=== PATIENT | male | born 1995 | race Caucasian/White ===

== ENCOUNTER 2018-11-13 16:31 | Emergency (ER) | payer OTHER, SELFPAY ==
[2018-11-13 16:35] VITALS: BP 172/103; PULSE 131; RESP 18; TEMP 37.1; O2SAT 100; BMI 26.4
[2018-11-13 17:03] LABS: Add Manual Diff / Slide Review NO; Basophils Absolute Auto 100 /uL (0-100); Eosinophils Absolute Auto 0 /uL (0-450); Eosinophils Percent Auto 0.4 % (2-4); Hematocrit 48.3 % (41-53); Hemoglobin 17.1 g/dL (13.5-17.5); Lymphocytes Absolute Auto 2400 /uL (1100-4500); Lymphocytes Percent Auto 29.8 % (25-40); Mean Corpuscular HGB Conc 35.4 % (30-36); Mean Corpuscular Volume 98.7 fL (80-100); Monocytes Absolute Auto 600 /uL (0-900); Monocytes Percent Auto 7.5 % (3-14); Neutrophils Absolute Auto 5000 /uL (1500-7000); Neutrophils Percent Auto 61.3 % (50-75); Platelet Count 425 X10^3/uL (150-400); Red Blood Cell Count 4.89 X10^6/uL (4.5-5.9); Red Cell Distribution Width 13.3 % (11.6-14.8); White Blood Cell Count 8.2 X10^3/uL (4.5-11.0)
[2018-11-13 17:32] LABS: Urine Amphetamines Negative (Negative); Urine Barbiturates Negative (Negative); Urine Benzodiazepines Negative (Negative); Urine Cocaine Negative (Negative); Urine MDMA Negative (Negative); Urine Methadone Negative (Negative); Urine Methamphetamines Negative (Negative); Urine Morphine/Opi cutoff 2000 Negative (Negative); Urine Oxycodone Negative (Negative); Urine Phencyclidine Negative (Negative); Urine Tetrahydrocannabinol Positive (Negative); Urine Tricyclic Antidepressant Negative (Negative)
[2018-11-13 17:42] LABS: Acetaminophen < 10 ug/mL (10-30); Alanine Aminotransferase 89 IU/L (21-72); Albumin 5.2 g/dL (3.5-5.0); Albumin Globulin Ratio 1.4 (1.0-2.8); Alkaline Phosphatase 143 U/L (38-126); Aspartate Aminotransferase 136 IU/L (17-59); BUN Creatinine Ratio 12.2 (6-22); Bilirubin Total 2.3 mg/dL (0.2-1.3); Blood Urea Nitrogen 11 mg/dL (9-20); Calcium 9.6 mg/dL (8.4-10.2); Carbon Dioxide 26 mmol/L (22-32); Chloride 102 mmol/L (98-107); Estimated Glomerular Filt Rate > 60.0 mL/min (>60); Ethanol (ETOH) 277 mg/dL; Globulin 3.7 g/dL (1.7-4.1); Glucose 106 mg/dL (70-100); HEMOLYSIS < 15 (0-50); Potassium 4.1 mmol/L (3.4-5.1); Salicylate < 1.0 mg/dL (<20); Sodium 145 mmol/L (137-145); Total Protein 8.9 g/dL (6.3-8.2)
--- NOTE | 2018-11-13 17:47 | ED.PSYCH ---
HPI - Psych <Jeni Reece DO - Last Filed: 11/14/18 07:03> General Chief Complaint: Psychiatric Symptoms Stated Complaint: UNSTABLE Time Seen by Provider: 11/13/18 16:54 Source: patient Mode of arrival: ambulatory Limitations: no limitations History of Present Illness HPI Narrative: Patient is a 23-year-old male presents with depression and alcoholism. He does have a history of suicide attempts in the past he has tried to cut his femoral arteries along with his wrist, he drank bleach. Today he states that he has no specific plan of suicide attempt. He states ?I do not want to be here anymore ?he feels of very sad he has been depressed for a long period of time. He drinks at least a 5th of alcohol daily. He drinks prior to his arrival. He is requesting detox and he would like to be put on depression medication. I have discussed with him that depression medication will not be started in the emergency department because he needs to be followed closely. He does not feel like he needs to put in a mental hospital but would really like detox for his alcohol today. MD complaint: feels depressed Duration: getting worse Related Data Home Medications Medication Instructions Recorded Confirmed No Known Home Medications 11/13/18 11/13/18 Allergies Allergy/AdvReac Type Severity Reaction Status Date / Time No Known Drug Allergies Allergy Verified 05/29/18 17:41 Review of Systems <DO Eduarda Waters Last Filed: 11/14/18 07:03> Review of Systems ROS Unobtainable: All systems reviewed & are unremarkable except as noted in HPI and below Constitutional Denies chills, Denies fever(s), Denies lethargy and Denies weakness ENT Ears, Nose, Mouth, and Throat: Denies change in voice, Denies neck pain and Denies sore throat Cardiovascular Denies chest pain, Denies irregular heart rhythm, Denies lightheadedness, Denies palpitations, Denies dyspnea, Denies dyspnea on exertion and Denies orthopnea Respiratory Denies cough, Denies dyspnea, Denies dyspnea on exertion and Denies wheezing Gastrointestinal Gastrointestinal: Denies abdominal pain, Denies change in bowel habits, Denies diarrhea, Denies nausea and Denies vomiting Genitourinary Denies hematuria, Denies flank pain, Denies urinary incontinence and Denies urinary urgency Musculoskeletal Denies neck pain Integumentary/Breasts Denies pruritus, Denies erythema, Denies rash and Denies wounds Neurologic Denies weakness Endocrine Denies palpitations Allergic/Immunologic Denies wheezing PFSH <Jeni Reece DO - Last Filed: 11/14/18 07:03> Medical History Alcoholism (Acute) Depression (Acute) Social History (Updated 11/13/18 @ 17:51 by Jeni Reece DO) Smoking Status: Current every day smoker alcohol intake: current Social History Smoking Status: Current every day smoker alcohol intake: current Exam <DO Eduarda Waters Last Filed: 11/14/18 07:03> Initial Vital Signs Initial Vital Signs: Vital Signs Temperature 98.8 F 11/13/18 16:35 Pulse Rate 131 H 11/13/18 16:35 Respiratory Rate 18 11/13/18 16:35 Blood Pressure 172/103 H 11/13/18 16:35 Pulse Oximetry 100 11/13/18 16:35 GENERAL: Alert male looks as though he has been crying good eye contact HEENT: Head atraumatic,EOMI, pupils reactive, CARDIOVASCULAR: Regular rate and rhythm without murmurs, rubs or gallops. RESPIRATORY: Breath sounds equal bilaterally, no wheezes rales or rhonchi. ABDOMEN: Soft, nontender. Normoactive bowel sounds all 4 quadrants. No guarding or rebound. EXTREMITIES: Normal range of motion, no clubbing or edema. Neurovascularly intact NEUROLOGICAL: Alert and oriented x4.Normal gait and speech. Cranial nerves II through XII grossly intact. SKIN: Warm, dry, no laceration, no petechiae, no rashes or lesions. Psych Appearance: grossly normal Mental Status: mental status grossly normal Speech and Movement: speech and movement normal Mood: congruent mood Affect: sad Attitude: cooperative Thought Process: normal Thought Content: normal Judgment: judgment good <Tobi Noble DO - Last Filed: 11/14/18 05:18> Initial Vital Signs Initial Vital Signs: Vital Signs Temperature 98.8 F 11/13/18 16:35 Pulse Rate 131 H 11/13/18 16:35 Respiratory Rate 18 11/13/18 16:35 Blood Pressure 172/103 H 11/13/18 16:35 Pulse Oximetry 100 11/13/18 16:35 Course <Jeni Reece DO - Last Filed: 11/14/18 07:03> Orders Ordered: Discontinued Medications Acetaminophen (Tylenol) 650 mg PO NOW ONE Stop: 11/13/18 23:27 Last Admin: 11/13/18 23:34 Dose: 650 mg Lorazepam (Ativan) 0.5 mg PO NOW ONE Stop: 11/13/18 21:27 Last Admin: 11/13/18 21:34 Dose: 0.5 mg Nicotine (Nicoderm) 21 mg TOP NOW ONE Stop: 11/13/18 19:14 Last Admin: 11/13/18 19:19 Dose: 21 mg Vital Signs - 8 hr 11/13/18 23:17 11/14/18 06:23 Temperature 97.9 F Pulse Rate 95 H 96 H Respiratory Rate 17 16 Blood Pressure [Right Arm] 127/79 148/89 H Pulse Oximetry 100 97 <Tobi Noble DO - Last Filed: 11/14/18 05:18> Orders Ordered: Discontinued Medications Acetaminophen (Tylenol) 650 mg PO NOW ONE Stop: 11/13/18 23:27 Last Admin: 11/13/18 23:34 Dose: 650 mg Lorazepam (Ativan) 0.5 mg PO NOW ONE Stop: 11/13/18 21:27 Last Admin: 11/13/18 21:34 Dose: 0.5 mg Nicotine (Nicoderm) 21 mg TOP NOW ONE Stop: 11/13/18 19:14 Last Admin: 11/13/18 19:19 Dose: 21 mg Vital Signs - 8 hr 11/13/18 23:17 11/14/18 06:23 Temperature 97.9 F Pulse Rate 95 H 96 H Respiratory Rate 17 16 Blood Pressure [Right Arm] 127/79 148/89 H Pulse Oximetry 100 97 MDM - Psych <DO Eduarda Waters Last Filed: 11/14/18 07:03> Lab Data Attestation: I reviewed the patient's lab results. Result diagrams: 11/13/18 16:56 11/13/18 16:56 Lab Results 11/13/18 11/13/18 11/13/18 Range/Units 16:56 16:56 16:56 WBC 8.2 (4.5-11.0) X10^3/uL RBC 4.89 (4.5-5.9) X10^6/uL Hgb 17.1 (13.5-17.5) g/dL Hct 48.3 (41-53) % MCV 98.7 (80-100) fL MCH 35.0 H (26-34) PG MCHC 35.4 (30-36) % RDW 13.3 (11.6-14.8) % Plt Count 425 H (150-400) X10^3/uL Neut % (Auto) 61.3 (50-75) % Lymph % (Auto) 29.8 (25-40) % Hendricks % (Auto) 7.5 (3-14) % Eos % (Auto) 0.4 L (2-4) % Baso % (Auto) 1.0 (0-2) % Neut # (Auto) 5000 (9141-1290) /uL Lymph # (Auto) 2400 (9803-1347) /uL Hendricks # (Auto) 600 (0-900) /uL Eos # (Auto) 0 (0-450) /uL Baso # (Auto) 100 (0-100) /uL Sodium 145 (137-145) mmol/L Potassium 4.1 (3.4-5.1) mmol/L Chloride 102 (98-107) mmol/L Carbon Dioxide 26 (22-32) mmol/L BUN 11 (9-20) mg/dL Creatinine 0.90 (0.66-1.25) mg/dL Estimated GFR > 60.0 (>60) mL/min BUN/Creatinine Ratio 12.2 (6-22) Glucose 106 H (70-100) mg/dL Calcium 9.6 (8.4-10.2) mg/dL Total Bilirubin 2.3 H (0.2-1.3) mg/dL AST 136 H (17-59) IU/L ALT 89 H (21-72) IU/L Alkaline Phosphatase 143 H (38-126) U/L Total Protein 8.9 H (6.3-8.2) g/dL Albumin 5.2 H (3.5-5.0) g/dL Globulin 3.7 (1.7-4.1) g/dL Albumin/Globulin Ratio 1.4 (1.0-2.8) TSH 1.86 (0.47-4.68) uIU/mL Free T4 1.01 (0.78-2.19) ng/dL Salicylates < 1.0 (<20) mg/dL Urine Opiates Screen (Negative) Ur Oxycodone Screen (Negative) Urine Methadone Screen (Negative) Acetaminophen < 10 L (10-30) ug/mL Ur Barbiturates Screen (Negative) U Tricyclic Antidepress (Negative) Ur Phencyclidine Scrn (Negative) Ur Amphetamines Screen (Negative) U Methamphetamines Scrn (Negative) Ur MDMA Scrn (Ecstasy) (Negative) U Benzodiazepines Scrn (Negative) Urine Cocaine Screen (Negative) U Marijuana (THC) Screen (Negative) Ethyl Alcohol 277 mg/dL 11/13/18 Range/Units 17:15 WBC (4.5-11.0) X10^3/uL RBC (4.5-5.9) X10^6/uL Hgb (13.5-17.5) g/dL Hct (41-53) % MCV (80-100) fL MCH (26-34) PG MCHC (30-36) % RDW (11.6-14.8) % Plt Count (150-400) X10^3/uL Neut % (Auto) (50-75) % Lymph % (Auto) (25-40) % Hendricks % (Auto) (3-14) % Eos % (Auto) (2-4) % Baso % (Auto) (0-2) % Neut # (Auto) (3454-5671) /uL Lymph # (Auto) (6840-8729) /uL Hendricks # (Auto) (0-900) /uL Eos # (Auto) (0-450) /uL Baso # (Auto) (0-100) /uL Sodium (137-145) mmol/L Potassium (3.4-5.1) mmol/L Chloride (98-107) mmol/L Carbon Dioxide (22-32) mmol/L BUN (9-20) mg/dL Creatinine (0.66-1.25) mg/dL Estimated GFR (>60) mL/min BUN/Creatinine Ratio (6-22) Glucose (70-100) mg/dL Calcium (8.4-10.2) mg/dL Total Bilirubin (0.2-1.3) mg/dL AST (17-59) IU/L ALT (21-72) IU/L Alkaline Phosphatase (38-126) U/L Total Protein (6.3-8.2) g/dL Albumin (3.5-5.0) g/dL Globulin (1.7-4.1) g/dL Albumin/Globulin Ratio (1.0-2.8) TSH (0.47-4.68) uIU/mL Free T4 (0.78-2.19) ng/dL Salicylates (<20) mg/dL Urine Opiates Screen Negative (Negative) Ur Oxycodone Screen Negative (Negative) Urine Methadone Screen Negative (Negative) Acetaminophen (10-30) ug/mL Ur Barbiturates Screen Negative (Negative) U Tricyclic Antidepress Negative (Negative) Ur Phencyclidine Scrn Negative (Negative) Ur Amphetamines Screen Negative (Negative) U Methamphetamines Scrn Negative (Negative) Ur MDMA Scrn (Ecstasy) Negative (Negative) U Benzodiazepines Scrn Negative (Negative) Urine Cocaine Screen Negative (Negative) U Marijuana (THC) Screen Positive H (Negative) Ethyl Alcohol mg/dL Point of Care Testing Breathalizer 0.23 Urine Dip Bedside Urine Glucose Negative Bedside Urine Bilirubin - Negative Bedside Urine Ketone - Negative Urine Specific [place] 1.025 Bedside Urine Occult Blood - Negative Bedside Urine pH 6.0 Bedside Urine Protein + 30 Bedside Urine Urobilinogen +/- 1mg Bedside Urine Nitrite - Negative Bedside Urine Leukocytes - Negative Esterase MDM Narrative Medical decision making narrative: At this time patient does not meet any sort of involuntary criteria. He is not actively suicidal. Requesting detox. Social work involved in care. Patient signed over to Dr. Noble for further care and management. <Tobi Noble, DO - Last Filed: 11/14/18 05:18> Lab Data Lab Results 11/13/18 11/13/18 11/13/18 Range/Units 16:56 16:56 16:56 WBC 8.2 (4.5-11.0) X10^3/uL RBC 4.89 (4.5-5.9) X10^6/uL Hgb 17.1 (13.5-17.5) g/dL Hct 48.3 (41-53) % MCV 98.7 (80-100) fL MCH 35.0 H (26-34) PG MCHC 35.4 (30-36) % RDW 13.3 (11.6-14.8) % Plt Count 425 H (150-400) X10^3/uL Neut % (Auto) 61.3 (50-75) % Lymph % (Auto) 29.8 (25-40) % Hendricks % (Auto) 7.5 (3-14) % Eos % (Auto) 0.4 L (2-4) % Baso % (Auto) 1.0 (0-2) % Neut # (Auto) 5000 (3933-7300) /uL Lymph # (Auto) 2400 (7045-2080) /uL Hendricks # (Auto) 600 (0-900) /uL Eos # (Auto) 0 (0-450) /uL Baso # (Auto) 100 (0-100) /uL Sodium 145 (137-145) mmol/L Potassium 4.1 (3.4-5.1) mmol/L Chloride 102 (98-107) mmol/L Carbon Dioxide 26 (22-32) mmol/L BUN 11 (9-20) mg/dL Creatinine 0.90 (0.66-1.25) mg/dL Estimated GFR > 60.0 (>60) mL/min BUN/Creatinine Ratio 12.2 (6-22) Glucose 106 H (70-100) mg/dL Calcium 9.6 (8.4-10.2) mg/dL Total Bilirubin 2.3 H (0.2-1.3) mg/dL AST 136 H (17-59) IU/L ALT 89 H (21-72) IU/L Alkaline Phosphatase 143 H (38-126) U/L Total Protein 8.9 H (6.3-8.2) g/dL Albumin 5.2 H (3.5-5.0) g/dL Globulin 3.7 (1.7-4.1) g/dL Albumin/Globulin Ratio 1.4 (1.0-2.8) TSH 1.86 (0.47-4.68) uIU/mL Free T4 1.01 (0.78-2.19) ng/dL Salicylates < 1.0 (<20) mg/dL Urine Opiates Screen (Negative) Ur Oxycodone Screen (Negative) Urine Methadone Screen (Negative) Acetaminophen < 10 L (10-30) ug/mL Ur Barbiturates Screen (Negative) U Tricyclic Antidepress (Negative) Ur Phencyclidine Scrn (Negative) Ur Amphetamines Screen (Negative) U Methamphetamines Scrn (Negative) Ur MDMA Scrn (Ecstasy) (Negative) U Benzodiazepines Scrn (Negative) Urine Cocaine Screen (Negative) U Marijuana (THC) Screen (Negative) Ethyl Alcohol 277 mg/dL 11/13/18 Range/Units 17:15 WBC (4.5-11.0) X10^3/uL RBC (4.5-5.9) X10^6/uL Hgb (13.5-17.5) g/dL Hct (41-53) % MCV (80-100) fL MCH (26-34) PG MCHC (30-36) % RDW (11.6-14.8) % Plt Count (150-400) X10^3/uL Neut % (Auto) (50-75) % Lymph % (Auto) (25-40) % Hendricks % (Auto) (3-14) % Eos % (Auto) (2-4) % Baso % (Auto) (0-2) % Neut # (Auto) (2198-3943) /uL Lymph # (Auto) (4238-4722) /uL Hendricks # (Auto) (0-900) /uL Eos # (Auto) (0-450) /uL Baso # (Auto) (0-100) /uL Sodium (137-145) mmol/L Potassium (3.4-5.1) mmol/L Chloride (98-107) mmol/L Carbon Dioxide (22-32) mmol/L BUN (9-20) mg/dL Creatinine (0.66-1.25) mg/dL Estimated GFR (>60) mL/min BUN/Creatinine Ratio (6-22) Glucose (70-100) mg/dL Calcium (8.4-10.2) mg/dL Total Bilirubin (0.2-1.3) mg/dL AST (17-59) IU/L ALT (21-72) IU/L Alkaline Phosphatase (38-126) U/L Total Protein (6.3-8.2) g/dL Albumin (3.5-5.0) g/dL Globulin (1.7-4.1) g/dL Albumin/Globulin Ratio (1.0-2.8) TSH (0.47-4.68) uIU/mL Free T4 (0.78-2.19) ng/dL Salicylates (<20) mg/dL Urine Opiates Screen Negative (Negative) Ur Oxycodone Screen Negative (Negative) Urine Methadone Screen Negative (Negative) Acetaminophen (10-30) ug/mL Ur Barbiturates Screen Negative (Negative) U Tricyclic Antidepress Negative (Negative) Ur Phencyclidine Scrn Negative (Negative) Ur Amphetamines Screen Negative (Negative) U Methamphetamines Scrn Negative (Negative) Ur MDMA Scrn (Ecstasy) Negative (Negative) U Benzodiazepines Scrn Negative (Negative) Urine Cocaine Screen Negative (Negative) U Marijuana (THC) Screen Positive H (Negative) Ethyl Alcohol mg/dL Point of Care Testing Breathalizer 0.23 Urine Dip Bedside Urine Glucose Negative Bedside Urine Bilirubin - Negative Bedside Urine Ketone - Negative Urine Specific [place] 1.025 Bedside Urine Occult Blood - Negative Bedside Urine pH 6.0 Bedside Urine Protein + 30 Bedside Urine Urobilinogen +/- 1mg Bedside Urine Nitrite - Negative Bedside Urine Leukocytes - Negative Esterase MDM Narrative Medical decision making narrative: Received turned over from day provider. Reviewed patient's history and physical exam. Patient is voluntary and is not restrained. Social work has been involved in the patient's case. They have been working on a potential bed at [facility]. Repeat of his blood alcohol level shows it increased slightly however was reported the patient's last drink was just prior to coming into the emergency department. A repeat of this again showed the alcohol level decreasing and below the 0.25 limit. Patient's case was evaluated by [facility] however ultimately they denied the patient because of his ?mental health issues ?this was after multiple hours of waiting for their response. [facility] was then contacted. Information was sent them. Again after multiple hours of waiting for them to review the patient's care a 3rd facility was contacted. Patient is accepted by at [facility] in [place]. Patient remains calm. Patient is stable for transfer. Patient is voluntary. Discharge Plan Departure Patient Disposition: Xfer [facility]iatric [facility] Clinical Impression: Alcohol intoxication Qualifiers: Complication of substance-induced condition: with unspecified complication Qualified Code(s): F10.929 - Alcohol use, unspecified with intoxication, unspecified
--- NOTE | 2018-11-13 17:53 | ED_ITS ---
HPI - Psych <Jeni Reece DO - Last Filed: 11/14/18 07:03> General Chief Complaint: Psychiatric Symptoms Stated Complaint: UNSTABLE Time Seen by Provider: 11/13/18 16:54 Source: patient Mode of arrival: ambulatory Limitations: no limitations History of Present Illness HPI Narrative: Patient is a 23-year-old male presents with depression and alcoholism. He does have a history of suicide attempts in the past he has tried to cut his femoral arteries along with his wrist, he drank bleach. Today he states that he has no specific plan of suicide attempt. He states ?I do not want to be here anymore ?he feels of very sad he has been depressed for a long period of time. He drinks at least a 5th of alcohol daily. He drinks prior to his arrival. He is requesting detox and he would like to be put on depression medication. I have discussed with him that depression medication will not be started in the emergency department because he needs to be followed closely. He does not feel like he needs to put in a mental hospital but would really like detox for his alcohol today. MD complaint: feels depressed Duration: getting worse Related Data Home Medications Medication Instructions Recorded Confirmed No Known Home Medications 11/13/18 11/13/18 Allergies Allergy/AdvReac Type Severity Reaction Status Date / Time No Known Drug Allergies Allergy Verified 05/29/18 17:41 Review of Systems <DO Eduarda Waters Last Filed: 11/14/18 07:03> Review of Systems ROS Unobtainable: All systems reviewed & are unremarkable except as noted in HPI and below Constitutional Denies chills, Denies fever(s), Denies lethargy and Denies weakness ENT Ears, Nose, Mouth, and Throat: Denies change in voice, Denies neck pain and Denies sore throat Cardiovascular Denies chest pain, Denies irregular heart rhythm, Denies lightheadedness, Denies palpitations, Denies dyspnea, Denies dyspnea on exertion and Denies orthopnea Respiratory Denies cough, Denies dyspnea, Denies dyspnea on exertion and Denies wheezing Gastrointestinal Gastrointestinal: Denies abdominal pain, Denies change in bowel habits, Denies diarrhea, Denies nausea and Denies vomiting Genitourinary Denies hematuria, Denies flank pain, Denies urinary incontinence and Denies urinary urgency Musculoskeletal Denies neck pain Integumentary/Breasts Denies pruritus, Denies erythema, Denies rash and Denies wounds Neurologic Denies weakness Endocrine Denies palpitations Allergic/Immunologic Denies wheezing PFSH <Jeni Reece DO - Last Filed: 11/14/18 07:03> Medical History Alcoholism (Acute) Depression (Acute) Social History (Updated 11/13/18 @ 17:51 by Jeni Reece DO) Smoking Status: Current every day smoker alcohol intake: current Social History Smoking Status: Current every day smoker alcohol intake: current Exam <DO Eduarda Waters Last Filed: 11/14/18 07:03> Initial Vital Signs Initial Vital Signs: Vital Signs Temperature 98.8 F 11/13/18 16:35 Pulse Rate 131 H 11/13/18 16:35 Respiratory Rate 18 11/13/18 16:35 Blood Pressure 172/103 H 11/13/18 16:35 Pulse Oximetry 100 11/13/18 16:35 GENERAL: Alert male looks as though he has been crying good eye contact HEENT: Head atraumatic,EOMI, pupils reactive, CARDIOVASCULAR: Regular rate and rhythm without murmurs, rubs or gallops. RESPIRATORY: Breath sounds equal bilaterally, no wheezes rales or rhonchi. ABDOMEN: Soft, nontender. Normoactive bowel sounds all 4 quadrants. No guarding or rebound. EXTREMITIES: Normal range of motion, no clubbing or edema. Neurovascularly intact NEUROLOGICAL: Alert and oriented x4.Normal gait and speech. Cranial nerves II through XII grossly intact. SKIN: Warm, dry, no laceration, no petechiae, no rashes or lesions. Psych Appearance: grossly normal Mental Status: mental status grossly normal Speech and Movement: speech and movement normal Mood: congruent mood Affect: sad Attitude: cooperative Thought Process: normal Thought Content: normal Judgment: judgment good <Tobi Noble DO - Last Filed: 11/14/18 05:18> Initial Vital Signs Initial Vital Signs: Vital Signs Temperature 98.8 F 11/13/18 16:35 Pulse Rate 131 H 11/13/18 16:35 Respiratory Rate 18 11/13/18 16:35 Blood Pressure 172/103 H 11/13/18 16:35 Pulse Oximetry 100 11/13/18 16:35 Course <Jeni Reece DO - Last Filed: 11/14/18 07:03> Orders Ordered: Discontinued Medications Acetaminophen (Tylenol) 650 mg PO NOW ONE Stop: 11/13/18 23:27 Last Admin: 11/13/18 23:34 Dose: 650 mg Lorazepam (Ativan) 0.5 mg PO NOW ONE Stop: 11/13/18 21:27 Last Admin: 11/13/18 21:34 Dose: 0.5 mg Nicotine (Nicoderm) 21 mg TOP NOW ONE Stop: 11/13/18 19:14 Last Admin: 11/13/18 19:19 Dose: 21 mg Vital Signs - 8 hr 11/13/18 23:17 11/14/18 06:23 Temperature 97.9 F Pulse Rate 95 H 96 H Respiratory Rate 17 16 Blood Pressure [Right Arm] 127/79 148/89 H Pulse Oximetry 100 97 <Tobi Noble DO - Last Filed: 11/14/18 05:18> Orders Ordered: Discontinued Medications Acetaminophen (Tylenol) 650 mg PO NOW ONE Stop: 11/13/18 23:27 Last Admin: 11/13/18 23:34 Dose: 650 mg Lorazepam (Ativan) 0.5 mg PO NOW ONE Stop: 11/13/18 21:27 Last Admin: 11/13/18 21:34 Dose: 0.5 mg Nicotine (Nicoderm) 21 mg TOP NOW ONE Stop: 11/13/18 19:14 Last Admin: 11/13/18 19:19 Dose: 21 mg Vital Signs - 8 hr 11/13/18 23:17 11/14/18 06:23 Temperature 97.9 F Pulse Rate 95 H 96 H Respiratory Rate 17 16 Blood Pressure [Right Arm] 127/79 148/89 H Pulse Oximetry 100 97 MDM - Psych <DO Eduarda Waters Last Filed: 11/14/18 07:03> Lab Data Attestation: I reviewed the patient's lab results. Result diagrams: 11/13/18 16:56 11/13/18 16:56 Lab Results 11/13/18 11/13/18 11/13/18 Range/Units 16:56 16:56 16:56 WBC 8.2 (4.5-11.0) X10^3/uL RBC 4.89 (4.5-5.9) X10^6/uL Hgb 17.1 (13.5-17.5) g/dL Hct 48.3 (41-53) % MCV 98.7 (80-100) fL MCH 35.0 H (26-34) PG MCHC 35.4 (30-36) % RDW 13.3 (11.6-14.8) % Plt Count 425 H (150-400) X10^3/uL Neut % (Auto) 61.3 (50-75) % Lymph % (Auto) 29.8 (25-40) % [place] % (Auto) 7.5 (3-14) % Eos % (Auto) 0.4 L (2-4) % Baso % (Auto) 1.0 (0-2) % Neut # (Auto) 5000 (9159-1317) /uL Lymph # (Auto) 2400 (9175-8936) /uL [place] # (Auto) 600 (0-900) /uL Eos # (Auto) 0 (0-450) /uL Baso # (Auto) 100 (0-100) /uL Sodium 145 (137-145) mmol/L Potassium 4.1 (3.4-5.1) mmol/L Chloride 102 (98-107) mmol/L Carbon Dioxide 26 (22-32) mmol/L BUN 11 (9-20) mg/dL Creatinine 0.90 (0.66-1.25) mg/dL Estimated GFR > 60.0 (>60) mL/min BUN/Creatinine Ratio 12.2 (6-22) Glucose 106 H (70-100) mg/dL Calcium 9.6 (8.4-10.2) mg/dL Total Bilirubin 2.3 H (0.2-1.3) mg/dL AST 136 H (17-59) IU/L ALT 89 H (21-72) IU/L Alkaline Phosphatase 143 H (38-126) U/L Total Protein 8.9 H (6.3-8.2) g/dL Albumin 5.2 H (3.5-5.0) g/dL Globulin 3.7 (1.7-4.1) g/dL Albumin/Globulin Ratio 1.4 (1.0-2.8) TSH 1.86 (0.47-4.68) uIU/mL Free T4 1.01 (0.78-2.19) ng/dL Salicylates < 1.0 (<20) mg/dL Urine Opiates Screen (Negative) Ur Oxycodone Screen (Negative) Urine Methadone Screen (Negative) Acetaminophen < 10 L (10-30) ug/mL Ur Barbiturates Screen (Negative) U Tricyclic Antidepress (Negative) Ur Phencyclidine Scrn (Negative) Ur Amphetamines Screen (Negative) U Methamphetamines Scrn (Negative) Ur MDMA Scrn (Ecstasy) (Negative) U Benzodiazepines Scrn (Negative) Urine Cocaine Screen (Negative) U Marijuana (THC) Screen (Negative) Ethyl Alcohol 277 mg/dL 11/13/18 Range/Units 17:15 WBC (4.5-11.0) X10^3/uL RBC (4.5-5.9) X10^6/uL Hgb (13.5-17.5) g/dL Hct (41-53) % MCV (80-100) fL MCH (26-34) PG MCHC (30-36) % RDW (11.6-14.8) % Plt Count (150-400) X10^3/uL Neut % (Auto) (50-75) % Lymph % (Auto) (25-40) % [place] % (Auto) (3-14) % Eos % (Auto) (2-4) % Baso % (Auto) (0-2) % Neut # (Auto) (5622-2793) /uL Lymph # (Auto) (2194-2618) /uL [place] # (Auto) (0-900) /uL Eos # (Auto) (0-450) /uL Baso # (Auto) (0-100) /uL Sodium (137-145) mmol/L Potassium (3.4-5.1) mmol/L Chloride (98-107) mmol/L Carbon Dioxide (22-32) mmol/L BUN (9-20) mg/dL Creatinine (0.66-1.25) mg/dL Estimated GFR (>60) mL/min BUN/Creatinine Ratio (6-22) Glucose (70-100) mg/dL Calcium (8.4-10.2) mg/dL Total Bilirubin (0.2-1.3) mg/dL AST (17-59) IU/L ALT (21-72) IU/L Alkaline Phosphatase (38-126) U/L Total Protein (6.3-8.2) g/dL Albumin (3.5-5.0) g/dL Globulin (1.7-4.1) g/dL Albumin/Globulin Ratio (1.0-2.8) TSH (0.47-4.68) uIU/mL Free T4 (0.78-2.19) ng/dL Salicylates (<20) mg/dL Urine Opiates Screen Negative (Negative) Ur Oxycodone Screen Negative (Negative) Urine Methadone Screen Negative (Negative) Acetaminophen (10-30) ug/mL Ur Barbiturates Screen Negative (Negative) U Tricyclic Antidepress Negative (Negative) Ur Phencyclidine Scrn Negative (Negative) Ur Amphetamines Screen Negative (Negative) U Methamphetamines Scrn Negative (Negative) Ur MDMA Scrn (Ecstasy) Negative (Negative) U Benzodiazepines Scrn Negative (Negative) Urine Cocaine Screen Negative (Negative) U Marijuana (THC) Screen Positive H (Negative) Ethyl Alcohol mg/dL Point of Care Testing Breathalizer 0.23 Urine Dip Bedside Urine Glucose Negative Bedside Urine Bilirubin - Negative Bedside Urine Ketone - Negative Urine Specific [place] 1.025 Bedside Urine Occult Blood - Negative Bedside Urine pH 6.0 Bedside Urine Protein + 30 Bedside Urine Urobilinogen +/- 1mg Bedside Urine Nitrite - Negative Bedside Urine Leukocytes - Negative Esterase MDM Narrative Medical decision making narrative: At this time patient does not meet any sort of involuntary criteria. He is not actively suicidal. Requesting detox. Social work involved in care. Patient signed over to Dr. Noble for further care and management. <Tobi Noble, DO - Last Filed: 11/14/18 05:18> Lab Data Lab Results 11/13/18 11/13/18 11/13/18 Range/Units 16:56 16:56 16:56 WBC 8.2 (4.5-11.0) X10^3/uL RBC 4.89 (4.5-5.9) X10^6/uL Hgb 17.1 (13.5-17.5) g/dL Hct 48.3 (41-53) % MCV 98.7 (80-100) fL MCH 35.0 H (26-34) PG MCHC 35.4 (30-36) % RDW 13.3 (11.6-14.8) % Plt Count 425 H (150-400) X10^3/uL Neut % (Auto) 61.3 (50-75) % Lymph % (Auto) 29.8 (25-40) % [place] % (Auto) 7.5 (3-14) % Eos % (Auto) 0.4 L (2-4) % Baso % (Auto) 1.0 (0-2) % Neut # (Auto) 5000 (0003-0966) /uL Lymph # (Auto) 2400 (8152-3976) /uL [place] # (Auto) 600 (0-900) /uL Eos # (Auto) 0 (0-450) /uL Baso # (Auto) 100 (0-100) /uL Sodium 145 (137-145) mmol/L Potassium 4.1 (3.4-5.1) mmol/L Chloride 102 (98-107) mmol/L Carbon Dioxide 26 (22-32) mmol/L BUN 11 (9-20) mg/dL Creatinine 0.90 (0.66-1.25) mg/dL Estimated GFR > 60.0 (>60) mL/min BUN/Creatinine Ratio 12.2 (6-22) Glucose 106 H (70-100) mg/dL Calcium 9.6 (8.4-10.2) mg/dL Total Bilirubin 2.3 H (0.2-1.3) mg/dL AST 136 H (17-59) IU/L ALT 89 H (21-72) IU/L Alkaline Phosphatase 143 H (38-126) U/L Total Protein 8.9 H (6.3-8.2) g/dL Albumin 5.2 H (3.5-5.0) g/dL Globulin 3.7 (1.7-4.1) g/dL Albumin/Globulin Ratio 1.4 (1.0-2.8) TSH 1.86 (0.47-4.68) uIU/mL Free T4 1.01 (0.78-2.19) ng/dL Salicylates < 1.0 (<20) mg/dL Urine Opiates Screen (Negative) Ur Oxycodone Screen (Negative) Urine Methadone Screen (Negative) Acetaminophen < 10 L (10-30) ug/mL Ur Barbiturates Screen (Negative) U Tricyclic Antidepress (Negative) Ur Phencyclidine Scrn (Negative) Ur Amphetamines Screen (Negative) U Methamphetamines Scrn (Negative) Ur MDMA Scrn (Ecstasy) (Negative) U Benzodiazepines Scrn (Negative) Urine Cocaine Screen (Negative) U Marijuana (THC) Screen (Negative) Ethyl Alcohol 277 mg/dL 11/13/18 Range/Units 17:15 WBC (4.5-11.0) X10^3/uL RBC (4.5-5.9) X10^6/uL Hgb (13.5-17.5) g/dL Hct (41-53) % MCV (80-100) fL MCH (26-34) PG MCHC (30-36) % RDW (11.6-14.8) % Plt Count (150-400) X10^3/uL Neut % (Auto) (50-75) % Lymph % (Auto) (25-40) % [place] % (Auto) (3-14) % Eos % (Auto) (2-4) % Baso % (Auto) (0-2) % Neut # (Auto) (0719-4388) /uL Lymph # (Auto) (9599-1922) /uL [place] # (Auto) (0-900) /uL Eos # (Auto) (0-450) /uL Baso # (Auto) (0-100) /uL Sodium (137-145) mmol/L Potassium (3.4-5.1) mmol/L Chloride (98-107) mmol/L Carbon Dioxide (22-32) mmol/L BUN (9-20) mg/dL Creatinine (0.66-1.25) mg/dL Estimated GFR (>60) mL/min BUN/Creatinine Ratio (6-22) Glucose (70-100) mg/dL Calcium (8.4-10.2) mg/dL Total Bilirubin (0.2-1.3) mg/dL AST (17-59) IU/L ALT (21-72) IU/L Alkaline Phosphatase (38-126) U/L Total Protein (6.3-8.2) g/dL Albumin (3.5-5.0) g/dL Globulin (1.7-4.1) g/dL Albumin/Globulin Ratio (1.0-2.8) TSH (0.47-4.68) uIU/mL Free T4 (0.78-2.19) ng/dL Salicylates (<20) mg/dL Urine Opiates Screen Negative (Negative) Ur Oxycodone Screen Negative (Negative) Urine Methadone Screen Negative (Negative) Acetaminophen (10-30) ug/mL Ur Barbiturates Screen Negative (Negative) U Tricyclic Antidepress Negative (Negative) Ur Phencyclidine Scrn Negative (Negative) Ur Amphetamines Screen Negative (Negative) U Methamphetamines Scrn Negative (Negative) Ur MDMA Scrn (Ecstasy) Negative (Negative) U Benzodiazepines Scrn Negative (Negative) Urine Cocaine Screen Negative (Negative) U Marijuana (THC) Screen Positive H (Negative) Ethyl Alcohol mg/dL Point of Care Testing Breathalizer 0.23 Urine Dip Bedside Urine Glucose Negative Bedside Urine Bilirubin - Negative Bedside Urine Ketone - Negative Urine Specific [place] 1.025 Bedside Urine Occult Blood - Negative Bedside Urine pH 6.0 Bedside Urine Protein + 30 Bedside Urine Urobilinogen +/- 1mg Bedside Urine Nitrite - Negative Bedside Urine Leukocytes - Negative Esterase MDM Narrative Medical decision making narrative: Received turned over from day provider. Reviewed patient's history and physical exam. Patient is voluntary and is not restrained. Social work has been involved in the patient's case. They have been working on a potential bed at [facility]. Repeat of his blood alcohol level shows it increased slightly however was reported the patient's last drink was just prior to coming into the emergency department. A repeat of this again showed the alcohol level decreasing and below the 0.25 limit. Patient's case was evaluated by [facility] however ultimately they denied the patient because of his ?mental health issues ?this was after multiple hours of waiting for their response. [facility] was then contacted. Information was sent them. Again after multiple hours of waiting for them to review the patient's care a 3rd facility was contacted. Patient is accepted by at [facility] in [place]. Patient remains calm. Patient is stable for transfer. Patient is voluntary. Discharge Plan Departure Patient Disposition: Xfer Psychiatric Hosp Clinical Impression: Alcohol intoxication Qualifiers: Complication of substance-induced condition: with unspecified complication Qualified Code(s): F10.929 - Alcohol use, unspecified with intoxication, unspecified
[2018-11-13 17:58] LABS: Free T4, Direct Thyroxine 1.01 ng/dL (0.78-2.19)
[2018-11-13 18:12] LABS: Thyroid Stimulating Hormone 1.86 uIU/mL (0.47-4.68)
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
--- NOTE | 2018-11-13 18:57 | CM.SWNOTE ---
ACCOUNT MANAGER SALES REPRESENTATIVE ED visit per provider request. Pt has had 2-ED visits within the last week for minor concerns. He has a history of bipolar disorder, however this is not a concern for him at this time. He states that he is connected to psychiatric support, however was interested in meeting with this ACCOUNT MANAGER SALES REPRESENTATIVE for support and discussion of resources. ACCOUNT MANAGER SALES REPRESENTATIVE was unable to meet with pt today, as he was deeply sleeping at time of ACCOUNT MANAGER SALES REPRESENTATIVE visit. No further need's indicated at this time per ED provider.
--- NOTE | 2018-11-13 19:00 | PC.NURSE ---
Per Dr. Noble pt not suicidal and not requiring suicide safety precautions. Seeking placement for patient. MEDICAL REVIEW SPECIALIST working with patient at this time.
[2018-11-13 19:11] VITALS: BP 151/105; PULSE 104; RESP 18; O2SAT 97
[2018-11-13] MEDS: NICOTINE 21 MG PATCH TOP (19:19)
[2018-11-13] MEDS: LORazepam 0.5 MG TABLET PO (21:34)
--- NOTE | 2018-11-13 22:11 | PC.NURSE ---
Called [facility] for update on placement. States his file to be screened at this time
[2018-11-13 23:17] VITALS: BP 127/79; PULSE 95; RESP 17; O2SAT 100
[2018-11-13] MEDS: ACETAMINOPHEN 325 MG TABLET 650 MG PO (23:34)
--- NOTE | 2018-11-14 02:18 | PC.NURSE ---
Faxed patient info to [facility], they state they will put a hold on a bed for now and review patient's chart. Awaiting decision and call back.
[2018-11-14 06:23] VITALS: BP 148/89; PULSE 96; RESP 16; TEMP 36.6; O2SAT 97
--- NOTE | 2018-11-14 08:05 | CM.SWNOTE ---
SW note: Per previous SW note from last night 11/13/18, [facility] was attempted for stabilization for MH and Detox but pt's BAL was too high as pt was still intoxicated from alcohol and suicidal ideation present and active. SW completed MH assessment/suicidal risk assessment in the ED last night and bed placement also attempted at [facility] but unclear if they declined pt or did not have any beds. SW followed up with ED staff this morning 11/14/18 when shift started and ED staff were able to fax pt's assessment and clinicals to [facility] to review as pt was able to become medically stable to transfer for voluntary mental health treatment and hopefully dual dx tx for chemical dependency and mental health and [facility] accepted referral and transport via BLS already set up by ED staff to [facility] around 0900 this morning. Plan: Patient to d/c via nonemergent BLS transport around 0900 today to [facility] for Voluntary MH treatment. BASSAM Lares
[2018-11-14] MEDS: LORazepam 0.5 MG TABLET 1 MG PO (08:06)
[2018-11-14 08:11] VITALS: BP 144/97; PULSE 93; RESP 18; TEMP 36.6; O2SAT 98
--- NOTE | 2018-11-14 08:43 | PC.NURSE ---
Report given to Arleth Schuster at [facility].
== END 2018-11-14 08:43 ==
PROVIDERS: Emergency Medicine; Emergency Provider Emergency Medicine
DX: F10.929 Alcohol use, unspecified with intoxication, unspecified (principal)
CPT/HCPCS: 36415; 80053; 80305; 80320; 80329; 81003; 82075; 84439; 84443; 85025; 99283; 99284; G0480

== ENCOUNTER → 2018-12-02 06:35 | Outpatient (CLI) | payer OTHER, SELFPAY ==
[2018-12-02 07:57] LABS: Alanine Aminotransferase 74 IU/L (21-72); Albumin 4.2 g/dL (3.5-5.0); Albumin Globulin Ratio 1.6 (1.0-2.8); Alkaline Phosphatase 97 U/L (38-126); Aspartate Aminotransferase 53 IU/L (17-59); Bilirubin Total 0.3 mg/dL (0.2-1.3); Blood Urea Nitrogen 7 mg/dL (9-20); Calcium 9.5 mg/dL (8.4-10.2); Carbon Dioxide 29 mmol/L (22-32); Chloride 102 mmol/L (98-107); Estimated Glomerular Filt Rate > 60.0 mL/min (>60); Globulin 2.6 g/dL (1.7-4.1); Glucose 88 mg/dL (70-100); HEMOLYSIS < 15 (0-50); Potassium 4.4 mmol/L (3.4-5.1); Sodium 139 mmol/L (137-145); Total Protein 6.8 g/dL (6.3-8.2)
[2018-12-02 08:27] LABS: TSH w/ Reflex to FT4 4.17 uIU/mL (0.47-4.68)
[2018-12-02 08:44] LABS: Hepatitis B Surface Antigen NEGATIVE s/c (NEGATIVE)
[2018-12-02 08:51] LABS: HIV 1 & 2 Ab/Ag 4th Gen Combo NEGATIVE (NEGATIVE); Hep C Virus Ab w/Reflex Quant NEGATIVE s/c (NEGATIVE)
[2018-12-04 14:17] LABS: RPR Screen Nonreactive (Nonreactive)
[2018-12-04 14:49] LABS: Hepatitis A Antibody IgM Nonreactive (Nonreactive)
[2018-12-04 14:54] LABS: HSV 1 IgM Screen Negative (Negative); HSV 2 IgM Screen Negative (Negative)
== END ==
PROVIDERS: PCP Nurse Practitioner Family; Visit Provider Nurse Practitioner Family
DX: R74.8 Abnormal levels of other serum enzymes (principal); Z20.2 Contact with and (suspected) exposure to infections with a predominantly sexual mode of transmission; Z87.898 Personal history of other specified conditions; R89.9 Unspecified abnormal finding in specimens from other organs, systems and tissues; F41.9 Anxiety disorder, unspecified
CPT/HCPCS: 36415; 80053; 84443; 86592; 86695; 86696; 86709; 86803; 87340; 87389

== ENCOUNTER 2019-11-15 08:41 | Inpatient (IN) | payer OTHER, SELFPAY ==
[2019-11-15] VITALS (14 sets, daily range): BP systolic 125–145; BP diastolic 69–90; PULSE 109–137; RESP 18–29; TEMP 36.8–38.1; O2SAT 93–98; BMI 27.3; BMI 26.2
[2019-11-15 09:14] LABS: Add Manual Diff / Slide Review NO; Basophils Absolute Auto 200 /uL (0-100); Eosinophils Absolute Auto 0 /uL (0-450); Eosinophils Percent Auto 0.1 % (2-4); Hemoglobin 13.7 g/dL (13.5-17.5); Lymphocytes Absolute Auto 1500 /uL (1100-4500); Lymphocytes Percent Auto 9.4 % (25-40); Mean Corpuscular Hemoglobin 33.4 PG (26-34); Mean Corpuscular Volume 92.9 fL (80-100); Monocytes Absolute Auto 1800 /uL (0-900); Monocytes Percent Auto 11.9 % (3-14); Neutrophils Absolute Auto 11900 /uL (1500-7000); Neutrophils Percent Auto 77.6 % (50-75); Platelet Count 179 X10^3/uL (150-400); Red Blood Cell Count 4.09 X10^6/uL (4.5-5.9); Red Cell Distribution Width 17.6 % (11.6-14.8); White Blood Cell Count 15.4 X10^3/uL (4.5-11.0)
[2019-11-15 09:22] LABS: INR 1.1 (0.9-1.3); Prothrombin Time 12.8 SECONDS (10.1-12.7)
[2019-11-15 09:24] LABS: PTT Partial Thromboplastin Tim 31 SECONDS (26.4-36.2)
[2019-11-15 09:28] LABS: Alanine Aminotransferase 151 IU/L (<50); Albumin 4.5 g/dL (3.5-5.0); Albumin Globulin Ratio 1.5 (1.0-2.8); Alkaline Phosphatase 139 U/L (38-126); Aspartate Aminotransferase 586 IU/L (17-59); BUN Creatinine Ratio 10.6 (6-22); Bilirubin Total 1.7 mg/dL (0.2-1.3); Blood Urea Nitrogen 5 mg/dL (9-20); Carbon Dioxide 30 mmol/L (22-32); Estimated Glomerular Filt Rate > 60.0 mL/min (>60); Glucose 167 mg/dL (70-100); HEMOLYSIS 23 (0-50); Lipase 281 U/L (23-300); Sodium 127 mmol/L (137-145); Total Protein 7.5 g/dL (6.3-8.2)
[2019-11-15 09:30] LABS: Chloride 75 mmol/L (98-107); Potassium 2.2 mmol/L (3.4-5.1)
[2019-11-15 09:36] LABS: Ethanol (ETOH) 478 mg/dL
[2019-11-15 10:11] LABS: Bacteria Urine None Seen; WBC Urine None Seen (0-5/HPF)
[2019-11-15 10:17] LABS: Culture Indicated Urine Cult Not Indicated; RBC Urine 0-1/HPF (0-5/HPF)
[2019-11-15] MEDS: ONDANSETRON 4 MG/2 ML INJ IV (10:59)
[2019-11-15] MEDS: MAGNESIUM SULFATE 2 GM, FOLIC ACID 1 MG, THIAMINE 100 MG, MULTIVITAMIN 10 ML in SODIUM ... IV (11:09)
[2019-11-15] MEDS: POTASSIUM CHLORIDE 80 MEQ in SODIUM CHLORIDE 0.9% 1,000 ML 130 ML IV (11:20)
--- NOTE | 2019-11-15 11:27 | ED_ITS ---
HPI - General Adult General Chief complaint: Toxicology Problem Stated complaint: V&N ETOH Time Seen by Provider: 11/15/19 09:18 Source: EMS Mode of arrival: EMS History of Present Illness HPI narrative: 24-year-old gentleman with a long history of polysubstance abuse. Stopped using methamphetamine and heroin 8 years ago however has continued with heavy alcohol. He was last in an alcohol facility for detox almost exactly a year ago. He has been drinking heavily for a number of months. He describes half a gal of hard alcohol daily and he drank an entire 5th of hard alcohol before coming into the emergency room this morning. His father brother and girlfriend stage an intervention of sorts and called medics to bring him into the emergency department. He states that he is interested in help. He reports that he generally feels weak, he has been vomiting has diarrhea regularly. He describes some black debris in the vomitus but no active bleeding and no black stools. He notes that he gets quite tremulous when he does not drink alcohol and frequently vomits in the morning until he is able to keep at least 1 drink in. He reports no solid foods for at least 15 days to the volume of alcohol he has been consuming. Related Data Previous Rx's Medication Instructions Recorded naproxen 500 mg tablet 500 mg PO BID #60 tab 12/16/18 sertraline 50 mg tablet 50 mg PO DAILY #90 tab 12/17/18 acamprosate 333 mg tablet,delayed 666 mg PO TID #90 tab 01/21/19 release trazodone 50 mg tablet 50 mg PO BEDTIME PRN #90 tab 03/16/19 Allergies Allergy/AdvReac Type Severity Reaction Status Date / Time No Known Drug Allergies Allergy Verified 11/15/19 08:52 Review of Systems Review of Systems Narrative: Pertinent positive and negative findings as per HPI he describes multiple small nonhealing skin lesions from various cuts and scrapes and activities of daily living Remainder of review of systems is otherwise unremarkable for Constitutional: Fevers, chills, ENT: No sore throat, neck pain, ear pain CV: Chest pain, palpitations, dyspnea on exertion Respiratory: Cough, wheeze, dyspnea : Dysuria, hematuria, flank pain MS: numbness, joint swelling or warmth Skin: Rashes, Neuro: Syncope, tingling Psych: Depression, anxiety, suicidal ideation Heme: Easy bruising or bleeding Patient History Medical History Alcohol use disorder (Acute) Chlamydia (Chronic) Depression (Chronic) 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) Surgical History (Updated 12/31/18 @ 20:09 by Chanda Whitmore) Anesthesia (Resolved) [place] teeth removed (Resolved) Family History (Updated 12/31/18 @ 20:12 by Chanda Whitmore) Father Hypertension Hyperlipidemia Deaf Mother Mental health problem Deaf Brother Deaf Sister Mental health problem Grandfather Cancer Diabetes mellitus Grandmother Breast cancer Social History household members: family Smoking Status: Current every day smoker Tobacco: How many years used: 10 quit status: considering quitting second hand exposure: Yes (family smokes) alcohol intake: current substance use type: marijuana Smoking Status: Current every day smoker alcohol intake frequency: 3 or more drinks per day Alcohol type: hard liquor Substance Use Type: marijuana Exam Narrative Exam Narrative: General: Disheveled gentleman swelling strongly of alcohol slightly slurred speech and clearly intoxicated but able to give a coherent history and participate in conversations HEENT: Dry mucous membranes, normal sclera with reactive but dilated pupils, Neck: supple Respiratory: Lungs are clear to auscultation, no wheezing no rales no rhonchi. Full and symmetrical air movement Cardiac: Tachycardic but Regular rate and rhythm no murmurs no bruits Abdomen: Soft, hepatomegaly with mild tenderness in the right upper quadrant. Mild tenderness with palpation in the epigastrium. No rebound or guarding and no ascites appreciated on physical exam. Good bowel tones, no flank pain Skin: Warm and dry, multiple small scratches over arms legs. 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 Neurologic: Slightly slurred speech with mild ataxia consistent with acute intoxication but no obvious asymmetries or abnormalities Extremities: No trauma, well perfused Psych: Cooperative, normal thought content Initial Vital Signs Initial Vital Signs: Vital Signs Temperature 98.3 F 11/15/19 08:49 Pulse Rate 118 H 11/15/19 08:49 Respiratory Rate 18 11/15/19 08:49 Blood Pressure 140/71 11/15/19 08:49 Pulse Oximetry 96 11/15/19 08:49 Course Orders Ordered: ED Orders 11/15/19 09:00 Complete Blood Count AUTO DIFF Stat Comprehensive Metabolic Panel Stat Ethanol (ETOH) Stat Lipase Stat Partial Thromboplastin Time Stat Prothrombin Time INR Stat 11/15/19 09:05 EKG-12 Lead Stat 11/15/19 09:55 Urine Microscopic Stat 11/15/19 11:47 XR chest 1V Stat 11/15/19 11:59 Urinalysis and Microscopic Stat Urine Drug Screen, Rapid Stat 11/15/19 12:01 Magnesium Stat 11/15/19 12:08 Hemoglobin A1C% w Est Avg Glu Stat Acetaminophen (Tylenol) 650 mg PO Q6HR PRN PRN Reason: Fever/Mild Pain (1-3) Al Hydrox/Mg Hydrox/Simethicone (Maalox Plus) 30 ml PO Q6HR PRN PRN Reason: Dyspepsia Bisacodyl (Dulcolax) 10 mg PO DAILY PRN PRN Reason: Constipation Calcium Carbonate (Tums) 1,000 mg PO Q4HR PRN PRN Reason: Dyspepsia Chlordiazepoxide HCl (Librium) 50 mg PO Q6HR [facility] Last Admin: 11/15/19 13:16 Dose: 50 mg Documented by: MEI Clonidine HCl (Catapres) 0.1 mg PO Q4HR PRN PRN Reason: Alcohol Withdrawal Last Admin: 11/15/19 13:16 Dose: 0.1 mg Documented by: MEI Enoxaparin Sodium (Lovenox) 40 mg SUBCUT DAILY [facility] Folic Acid (Folic Acid) 1 mg PO DAILY [facility] Magnesium Sulfate 2 gm/ Folic Acid 1 mg/ Thiamine HCl 100 mg / Multivitamins 10 ml/ Sodium Chloride 1,015.2 mls @ 125 mls/hr IV NOW ONE Stop: 11/15/19 18:42 Last Admin: 11/15/19 11:09 Dose: 125 mls/hr Documented by: BRYON Potassium Chloride 80 meq/ (Sodium Chloride) 1,040 mls @ 130 mls/hr IV NOW ONE Stop: 11/15/19 18:35 Last Admin: 11/15/19 11:20 Dose: 130 mls/hr Documented by: BRYON Cosigned by: ROSAURA Sodium Chloride (Normal Saline 0.9%) 1,000 mls @ 100 mls/hr IV CONT KYRIE Last Admin: 11/15/19 13:21 Dose: Not Given Documented by: TBLANTO Lorazepam (Ativan) 0 mg PO CIWAPRN PRN; Protocol PRN Reason: Alcohol Withdrawal Lorazepam (Ativan) 0 mg IV CIWAPRN PRN; Protocol PRN Reason: Alcohol Withdrawal Last Admin: 11/15/19 13:16 Dose: 2 mg Documented by: MEI Multivitamins (Tab-A-Leyla) 1 tab PO DAILY KYRIE Naloxone HCl (Narcan) 0.2 mg IV Q2MIN PRN PRN Reason: Opiate Reversal Ondansetron HCl (Zofran) 4 mg IV Q4HR PRN PRN Reason: Nausea And Vomiting Pantoprazole Sodium (Protonix) 40 mg PO 0600 KYRIE Thiamine HCl (Vitamin B-1) 100 mg PO DAILY KYRIE Stop: 11/19/19 09:01 Discontinued Medications Metoclopramide HCl (Reglan) 10 mg IV NOW ONE Stop: 11/15/19 12:21 Last Admin: 11/15/19 12:23 Dose: 10 mg Documented by: BRYON Metoclopramide HCl (Reglan) 10 mg IV NOW ONE Stop: 11/15/19 12:22 Last Admin: 11/15/19 12:27 Dose: Not Given Documented by: BRYON Ondansetron HCl (Zofran) 4 mg IV NOW ONE Stop: 11/15/19 10:36 Last Admin: 11/15/19 10:59 Dose: 4 mg Documented by: BRYON Pantoprazole Sodium (Protonix) 40 mg IV NOW ONE Stop: 11/15/19 11:37 Last Admin: 11/15/19 11:39 Dose: 40 mg Documented by: BRYON Vital Signs Vital signs: Vital Signs - 8 hr 11/15/19 08:49 11/15/19 10:11 11/15/19 10:30 Temperature 98.3 F Pulse Rate 118 H 109 H 114 H Respiratory Rate 18 24 29 H Blood Pressure 140/71 142/89 H 137/84 Pulse Oximetry 96 95 96 11/15/19 11:00 11/15/19 11:07 11/15/19 11:54 Temperature 100.5 F H Pulse Rate 111 H 110 H 129 H Respiratory Rate 18 22 Blood Pressure 142/83 H 142/83 H 134/80 Pulse Oximetry 96 96 97 11/15/19 12:00 Temperature Pulse Rate 116 H Respiratory Rate 23 Blood Pressure 145/84 H Pulse Oximetry 93 Medical Decision Making Medical Records Medical records reviewed: Yes I reviewed the patient's medical records. Lab Data Lab results reviewed: Yes I reviewed the patient's lab results. Result diagrams: 11/15/19 09:00 11/15/19 09:00 Labs: Lab Results 11/15/19 11/15/19 11/15/19 Range/Units 09:00 09:00 09:00 WBC 15.4 H (4.5-11.0) X10^3/uL RBC 4.09 L (4.5-5.9) X10^6/uL Hgb 13.7 (13.5-17.5) g/dL Hct 38.0 L (41-53) % MCV 92.9 (80-100) fL MCH 33.4 (26-34) PG MCHC 36.0 (30-36) % RDW 17.6 H (11.6-14.8) % Plt Count 179 (150-400) X10^3/uL Neut % (Auto) 77.6 H (50-75) % Lymph % (Auto) 9.4 L (25-40) % [place] % (Auto) 11.9 (3-14) % Eos % (Auto) 0.1 L (2-4) % Baso % (Auto) 1.0 (0-2) % Neut # (Auto) 54757 H (8889-3879) /uL Lymph # (Auto) 1500 (3860-5796) /uL [place] # (Auto) 1800 H (0-900) /uL Eos # (Auto) 0 (0-450) /uL Baso # (Auto) 200 H (0-100) /uL PT 12.8 H (10.1-12.7) SECONDS INR 1.1 (0.9-1.3) APTT 31 (26.4-36.2) SECONDS Sodium 127 L (137-145) mmol/L Potassium 2.2 L* (3.4-5.1) mmol/L Chloride 75 L* (98-107) mmol/L Carbon Dioxide 30 (22-32) mmol/L BUN 5 L (9-20) mg/dL Creatinine 0.47 L (0.66-1.25) mg/dL Estimated GFR > 60.0 (>60) mL/min BUN/Creatinine Ratio 10.6 (6-22) Glucose 167 H (70-100) mg/dL Hemoglobin A1c (4.0-6.0) % Calcium 9.0 (8.4-10.2) mg/dL Magnesium (1.6-2.3) mg/dL Total Bilirubin 1.7 H (0.2-1.3) mg/dL AST 586 H (17-59) IU/L ALT 151 H (<50) IU/L Alkaline Phosphatase 139 H (38-126) U/L Total Protein 7.5 (6.3-8.2) g/dL Albumin 4.5 (3.5-5.0) g/dL Globulin 3.0 (1.7-4.1) g/dL Albumin/Globulin Ratio 1.5 (1.0-2.8) Lipase 281 (23-300) U/L Urine Color Urine Appearance Urine pH (4.5-8.0) Ur Specific [place] (1.000-1.035) Urine Protein (Negative) Urine Glucose (UA) (Negative) g/dL Urine Ketones (NEGATIVE) Urine Occult Blood (Negative) Urine Nitrate (Negative) Urine Bilirubin (NEGATIVE) Urine Urobilinogen (0.2) E.U./dL Ur Leukocyte Esterase (NEGATIVE) Urine RBC (0-5/HPF) Urine WBC (0-5/HPF) Urine Bacteria (None) Ur Culture Indicated? U Opiates 300ng/mL cut (Negative) Ur Oxycodone Screen (Negative) Urine Methadone Screen (Negative) Ur Barbiturates Screen (Negative) U Tricyclic Antidepress (Negative) Ur Phencyclidine Scrn (Negative) Ur Amphetamines Screen (Negative) U Methamphetamines Scrn (Negative) Ur MDMA Scrn (Ecstasy) (Negative) U Benzodiazepines Scrn (Negative) Urine Cocaine Screen (Negative) U Marijuana (THC) Screen (Negative) Ethyl Alcohol 478 H* ( - 10) mg/dL 11/15/19 11/15/19 11/15/19 Range/Units 09:55 11:59 11:59 WBC (4.5-11.0) X10^3/uL RBC (4.5-5.9) X10^6/uL Hgb (13.5-17.5) g/dL Hct (41-53) % MCV (80-100) fL MCH (26-34) PG MCHC (30-36) % RDW (11.6-14.8) % Plt Count (150-400) X10^3/uL Neut % (Auto) (50-75) % Lymph % (Auto) (25-40) % [place] % (Auto) (3-14) % Eos % (Auto) (2-4) % Baso % (Auto) (0-2) % Neut # (Auto) (9499-5882) /uL Lymph # (Auto) (4965-4007) /uL [place] # (Auto) (0-900) /uL Eos # (Auto) (0-450) /uL Baso # (Auto) (0-100) /uL PT (10.1-12.7) SECONDS INR (0.9-1.3) APTT (26.4-36.2) SECONDS Sodium (137-145) mmol/L Potassium (3.4-5.1) mmol/L Chloride (98-107) mmol/L Carbon Dioxide (22-32) mmol/L BUN (9-20) mg/dL Creatinine (0.66-1.25) mg/dL Estimated GFR (>60) mL/min BUN/Creatinine Ratio (6-22) Glucose (70-100) mg/dL Hemoglobin A1c (4.0-6.0) % Calcium (8.4-10.2) mg/dL Magnesium (1.6-2.3) mg/dL Total Bilirubin (0.2-1.3) mg/dL AST (17-59) IU/L ALT (<50) IU/L Alkaline Phosphatase (38-126) U/L Total Protein (6.3-8.2) g/dL Albumin (3.5-5.0) g/dL Globulin (1.7-4.1) g/dL Albumin/Globulin Ratio (1.0-2.8) Lipase (23-300) U/L Urine Color Yellow Urine Appearance Clear Urine pH 6.5 (4.5-8.0) Ur Specific [place] <=1.005 (1.000-1.035) Urine Protein 1+ H (Negative) Urine Glucose (UA) Negative (Negative) g/dL Urine Ketones Negative (NEGATIVE) Urine Occult Blood Trace-lysed (Negative) Urine Nitrate Negative (Negative) Urine Bilirubin Negative (NEGATIVE) Urine Urobilinogen 0.2 (0.2) E.U./dL Ur Leukocyte Esterase Trace H (NEGATIVE) Urine RBC 0-1/hpf 0-1/hpf (0-5/HPF) Urine WBC None seen None seen (0-5/HPF) Urine Bacteria None seen None seen (None) Ur Culture Indicated? Cult not indicated Cult not indicated U Opiates 300ng/mL cut Negative (Negative) Ur Oxycodone Screen Negative (Negative) Urine Methadone Screen Negative (Negative) Ur Barbiturates Screen Negative (Negative) U Tricyclic Antidepress Negative (Negative) Ur Phencyclidine Scrn Negative (Negative) Ur Amphetamines Screen Negative (Negative) U Methamphetamines Scrn Negative (Negative) Ur MDMA Scrn (Ecstasy) Negative (Negative) U Benzodiazepines Scrn Negative (Negative) Urine Cocaine Screen Negative (Negative) U Marijuana (THC) Screen Positive H (Negative) Ethyl Alcohol ( - 10) mg/dL 11/15/19 11/15/19 Range/Units 12:01 12:08 WBC (4.5-11.0) X10^3/uL RBC (4.5-5.9) X10^6/uL Hgb (13.5-17.5) g/dL Hct (41-53) % MCV (80-100) fL MCH (26-34) PG MCHC (30-36) % RDW (11.6-14.8) % Plt Count (150-400) X10^3/uL Neut % (Auto) (50-75) % Lymph % (Auto) (25-40) % [place] % (Auto) (3-14) % Eos % (Auto) (2-4) % Baso % (Auto) (0-2) % Neut # (Auto) (8875-5422) /uL Lymph # (Auto) (7495-7522) /uL [place] # (Auto) (0-900) /uL Eos # (Auto) (0-450) /uL Baso # (Auto) (0-100) /uL PT (10.1-12.7) SECONDS INR (0.9-1.3) APTT (26.4-36.2) SECONDS Sodium (137-145) mmol/L Potassium (3.4-5.1) mmol/L Chloride (98-107) mmol/L Carbon Dioxide (22-32) mmol/L BUN (9-20) mg/dL Creatinine (0.66-1.25) mg/dL Estimated GFR (>60) mL/min BUN/Creatinine Ratio (6-22) Glucose (70-100) mg/dL Hemoglobin A1c 5.2 (4.0-6.0) % Calcium (8.4-10.2) mg/dL Magnesium 1.0 L (1.6-2.3) mg/dL Total Bilirubin (0.2-1.3) mg/dL AST (17-59) IU/L ALT (<50) IU/L Alkaline Phosphatase (38-126) U/L Total Protein (6.3-8.2) g/dL Albumin (3.5-5.0) g/dL Globulin (1.7-4.1) g/dL Albumin/Globulin Ratio (1.0-2.8) Lipase (23-300) U/L Urine Color Urine Appearance Urine pH (4.5-8.0) Ur Specific [place] (1.000-1.035) Urine Protein (Negative) Urine Glucose (UA) (Negative) g/dL Urine Ketones (NEGATIVE) Urine Occult Blood (Negative) Urine Nitrate (Negative) Urine Bilirubin (NEGATIVE) Urine Urobilinogen (0.2) E.U./dL Ur Leukocyte Esterase (NEGATIVE) Urine RBC (0-5/HPF) Urine WBC (0-5/HPF) Urine Bacteria (None) Ur Culture Indicated? U Opiates 300ng/mL cut (Negative) Ur Oxycodone Screen (Negative) Urine Methadone Screen (Negative) Ur Barbiturates Screen (Negative) U Tricyclic Antidepress (Negative) Ur Phencyclidine Scrn (Negative) Ur Amphetamines Screen (Negative) U Methamphetamines Scrn (Negative) Ur MDMA Scrn (Ecstasy) (Negative) U Benzodiazepines Scrn (Negative) Urine Cocaine Screen (Negative) U Marijuana (THC) Screen (Negative) Ethyl Alcohol ( - 10) mg/dL Urine Dip Bedside Urine Glucose Negative Bedside Urine Bilirubin - Negative Bedside Urine Ketone - Negative Urine Specific [place] 1.010 Bedside Urine Occult Blood +/- Bedside Urine pH 6.5 Bedside Urine Protein + 30 Bedside Urine Urobilinogen - Negative Bedside Urine Nitrite - Negative Bedside Urine Leukocytes - Negative Esterase Point of care testing: Urine Dip Bedside Urine Glucose Negative Bedside Urine Bilirubin - Negative Bedside Urine Ketone - Negative Urine Specific [place] 1.010 Bedside Urine Occult Blood +/- Bedside Urine pH 6.5 Bedside Urine Protein + 30 Bedside Urine Urobilinogen - Negative Bedside Urine Nitrite - Negative Bedside Urine Leukocytes - Negative Esterase Imaging Data Chest x-ray: Radiologist's Impression: IMPRESSION: No acute cardiopulmonary pathology. Dictated by: Jem Murrell M.D. on 11/15/2019 at 12:10 ECG Data Attestation: I personally reviewed and interpreted this ECG as follows: Interpretation: Sinus rhythm at a rate of 114 Prolonged QTC at 556 No acute ischemia MDM Narrative Medical decision making narrative: 24-year-old gentleman who has been drinking heavily and not eating. Presents with an alcohol level at 478 and still quite coherent and able to give a cohesive history. Multiple lab abnormalities. He does have a leukocytosis but no evidence of acute infection Severe hypokalemia 2.2 with a prolonged QTC Hyponatremia at 127 Elevated bilirubin AST ALT alk-phos all consistent with alcoholic hepatitis with a normal lipase suggesting absence of pancreatitis. Will be admitted for correction of severe hypokalemia and hyponatremia and anticipate significant alcohol withdrawal complications given the fact that he seems minimally intoxicated with a measured alcohol level of 478. He is already asking for Ativan and this is declined as he has no evidence of acute withdrawal yet. I suspect, given the 5th of alcohol that was consumed just prior to arrival, with there is still quite a bit of alcohol in his stomach in would be surprised if his level increases before he begins to fully metabolize his alcohol does from this morning Is given a banana bag, IV potassium is started, will be given Protonix to help with gastric and esophageal discomfort from the recent vomiting. 11:47 am Temp to 100.5 is noted, this is increased from admission. Will add chest x-ray as well as urine culture. At this point I am still not suspicious of infection based on his clinical exam and will hold on any antibiotics until additional available suggests they are appropriate. [id number] Case reviewed with Dr Hubbard. Will admit, will need [employer] consult as well. Discharge Plan Departure Patient Disposition: Admitted As Inpatient Clinical Impression: Acute hypokalemia, Alcohol use disorder, Acute hyponatremia Alcohol intoxication Qualifiers: Complication of substance-induced condition: uncomplicated Qualified Code(s): F10.920 - Alcohol use, unspecified with intoxication, uncomplicated Discharge Date/Time: 11/15/19 13:25 Referrals: Cher Sanchez ARNP [Primary Care Provider] - Admit Date/Time: 11/15/19 12:08 Admit Provider: Deena Hubbard
[2019-11-15] MEDS: PANTOPRAZOLE 40 MG VIAL IV ×2 (11:39→20:18)
--- NOTE | 2019-11-15 11:43 | PC.NURSE ---
patient temp is 100.5 temporal.
--- NOTE | 2019-11-15 11:47 | DI.RAD.S_ITS ---
PROCEDURE: XR CHEST 1V INDICATIONS: fever TECHNIQUE: One view of the chest was acquired. COMPARISON: None. FINDINGS: Surgical changes and devices: None. Lungs and pleura: Lungs are clear. No pleural effusions or pneumothorax. Mediastinum: Mediastinal contours appear normal. Heart size is normal. Bones and chest wall: No suspicious bony lesions. Overlying soft tissues appear unremarkable. IMPRESSION: No acute cardiopulmonary pathology. Dictated by: Jem Murrell M.D. on 11/15/2019 at 12:10 Approved by: Jem Murrell M.D. on 11/15/2019 at 12:10
[2019-11-15 12:00] LABS: Bacteria Urine None Seen; WBC Urine None Seen (0-5/HPF)
[2019-11-15 12:04] LABS: Appearance Urine UA CLEAR; Bilirubin Urine UA NEGATIVE (NEGATIVE); Color Urine UA YELLOW; Glucose Urine UA NEGATIVE (Negative); Ketones Urine UA NEGATIVE (NEGATIVE); Leukocyte Esterase Urine UA TRACE (NEGATIVE); Nitrite Urine UA NEGATIVE (Negative); Occult Blood Urine UA TRACE-LYSED (Negative); Protein Urine UA 1+ (Negative); Specific Gravity Urine UA <=1.005 (1.000-1.035); Urobilinogen Urine UA 0.2 E.U./dL (0.2); pH Urine UA 6.5 (4.5-8.0)
[2019-11-15 12:05] LABS: Ur Creatinine Normal (Normal); Ur Specific Gravity Normal (Normal); Urine pH Normal (Normal)
[2019-11-15 12:06] LABS: UR Morphine/Opiate cutoff 300 Negative (Negative); Urine Amphetamines Negative (Negative); Urine Barbiturates Negative (Negative); Urine Benzodiazepines Negative (Negative); Urine Cocaine Negative (Negative); Urine MDMA Negative (Negative); Urine Methadone Negative (Negative); Urine Methamphetamines Negative (Negative); Urine Oxycodone Negative (Negative); Urine Phencyclidine Negative (Negative); Urine Tetrahydrocannabinol Positive (Negative); Urine Tricyclic Antidepressant Negative (Negative)
[2019-11-15 12:16] LABS: Culture Indicated Urine Cult Not Indicated; RBC Urine 0-1/HPF (0-5/HPF)
[2019-11-15 12:18] LABS: Hemoglobin A1C% w Est Avg Glu 5.2 % (4.0-6.0)
[2019-11-15] MEDS: METOCLOPRAMIDE 10 MG/2 ML INJ IV (12:23)
[2019-11-15] MEDS: LORazepam 2 MG/ML INJ IV (13:16)
[2019-11-15] MEDS: cloNIDine 0.1 MG TABLET PO ×2 (13:16→20:18)
[2019-11-15] MEDS: chlordiazePOXIDE 25 MG CAPSULE 50 MG PO ×2 (13:16→17:59)
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
[2019-11-15 14:48] LABS: COVID19 -Nasal RAPID Negative (Negative)
--- NOTE | 2019-11-15 14:53 | PC.NURSE ---
pt admitted to room 224 - a/o and quite tremulous- here for alcohol detox- medicated with po librium and catapres as well as iv loraz for ciwa of 14- electrolyte imbalance - receiving k-rider/mag rider and banana bag he has not voided as of yet and has been cooperative- remains sinus tachycardic- bed alarm on
[2019-11-15] MEDS: MAGNESIUM SULFATE 2 GM/50 ML PIGGYBACK IV (15:10)
[2019-11-15] MEDS: LORazepam 1 MG TABLET PO (17:59)
[2019-11-15 19:39] LABS: Alanine Aminotransferase 133 IU/L (<50); Albumin 3.9 g/dL (3.5-5.0); Albumin Globulin Ratio 1.3 (1.0-2.8); Alkaline Phosphatase 117 U/L (38-126); Aspartate Aminotransferase 442 IU/L (17-59); BUN Creatinine Ratio 7.4 (6-22); Bilirubin Total 2.2 mg/dL (0.2-1.3); Blood Urea Nitrogen 4 mg/dL (9-20); Calcium 8.2 mg/dL (8.4-10.2); Carbon Dioxide 38 mmol/L (22-32); Chloride 84 mmol/L (98-107); Estimated Glomerular Filt Rate > 60.0 mL/min (>60); Globulin 2.9 g/dL (1.7-4.1); Glucose 101 mg/dL (70-100); HEMOLYSIS < 15 (0-50); Magnesium 1.9 mg/dL (1.6-2.3); Potassium 2.8 mmol/L (3.4-5.1); Sodium 128 mmol/L (137-145); Total Protein 6.8 g/dL (6.3-8.2)
[2019-11-15] MEDS: SODIUM CHLORIDE 0.9% 1,000 ML 100 ML IV (20:01)
[2019-11-16] VITALS (10 sets, daily range): BP systolic 120–142; BP diastolic 70–89; PULSE 93–105; RESP 16–24; TEMP 36.5–37.6; O2SAT 95–98
[2019-11-16] MEDS: chlordiazePOXIDE 25 MG CAPSULE 50 MG PO ×5 (00:09→23:47)
--- NOTE | 2019-11-16 03:41 | PC.NURSE ---
Addendum entered by Madelyn Rodarte R.N. 11/16/19 06:01: Patient stated I don't dry heave when I have Sprite. Addendum entered by Madelyn Rodarte R.N. 11/16/19 05:35: Had another episode of dry heaves, medicated per JUL with zofran. Concern that patient is initiating dry heaving intentionally. Stated I don't think this was a good idea, clarifying his admission to the hospital because I don't feel good and I'm having diarrhea. Educated patient that the hospital is where he wants to be to have a successful and safe detoxification from alcohol. Patient stated I know. Will continue to monitor. Original Note: Shift note: Patient is AxOx3, can make needs known. Perseverates on topics, focused on getting soda to drink. Educated patient on drinking water for hydration as patient per nursing report from evening shift had consumed many cans of Shawna Mist. Asked this RN at time of assessment for ativan, educated patient on Librium protocol. Medicated per JUL. CIWA: 5 for tremors, restlessness. Oriented, denies headache, nausea/vomiting, no auditory/visual hallucinations. Prior to change of shift had fecal incontinence and had another episode of fecal incontinence on the floor when using the urinal. Gave patient brief to wear, educated on purpose of brief. Patient requested to be naked and would just cover up, educated patient on need to wear hospital gown. Had one episode of dry heaves but quickly resolved. Lung sounds are coarse, hacking cough that patient reports swallowing expectorate. Saturating WNL on RA. Tele: ST and NSR w/ BBB Seizure precautions in place. High fall risk d/t falls and alcohol detox. Bed alarm on and functioning, call light in reach, uses appropriately
[2019-11-16] MEDS: ONDANSETRON 4 MG/2 ML INJ IV ×2 (04:11→08:10)
[2019-11-16] MEDS: POTASSIUM CHLORIDE 60 MEQ in SODIUM CHLORIDE 0.9% 500 ML 88.333 ML IV (06:47)
[2019-11-16 06:48] LABS: Add Manual Diff / Slide Review NO; Basophils Absolute Auto 100 /uL (0-100); Basophils Percent Auto 0.7 % (0-2); Eosinophils Absolute Auto 100 /uL (0-450); Eosinophils Percent Auto 0.8 % (2-4); Hematocrit 35.7 % (41-53); Hemoglobin 12.7 g/dL (13.5-17.5); Lymphocytes Absolute Auto 1000 /uL (1100-4500); Mean Corpuscular HGB Conc 35.5 % (30-36); Mean Corpuscular Hemoglobin 33.8 PG (26-34); Mean Corpuscular Volume 95.2 fL (80-100); Monocytes Absolute Auto 800 /uL (0-900); Monocytes Percent Auto 5.5 % (3-14); Neutrophils Absolute Auto 12500 /uL (1500-7000); Platelet Count 155 X10^3/uL (150-400); Red Blood Cell Count 3.75 X10^6/uL (4.5-5.9); Red Cell Distribution Width 17.6 % (11.6-14.8); White Blood Cell Count 14.5 X10^3/uL (4.5-11.0)
[2019-11-16 06:59] LABS: Alanine Aminotransferase 117 IU/L (<50); Albumin 3.9 g/dL (3.5-5.0); Albumin Globulin Ratio 1.3 (1.0-2.8); Alkaline Phosphatase 124 U/L (38-126); Aspartate Aminotransferase 357 IU/L (17-59); BUN Creatinine Ratio 9.4 (6-22); Bilirubin Total 2.1 mg/dL (0.2-1.3); Blood Urea Nitrogen 5 mg/dL (9-20); Calcium 8.6 mg/dL (8.4-10.2); Carbon Dioxide 34 mmol/L (22-32); Chloride 88 mmol/L (98-107); Estimated Glomerular Filt Rate > 60.0 mL/min (>60); Globulin 2.9 g/dL (1.7-4.1); Glucose 105 mg/dL (70-100); HEMOLYSIS < 15 (0-50); Sodium 131 mmol/L (137-145); Total Protein 6.8 g/dL (6.3-8.2)
[2019-11-16 07:00] LABS: Magnesium 1.8 mg/dL (1.6-2.3)
[2019-11-16 07:04] LABS: Potassium 2.6 mmol/L (3.4-5.1)
[2019-11-16] MEDS: ENOXAPARIN 40 MG/0.4 ML SYRINGE SUBCUT (08:08)
[2019-11-16] MEDS: cloNIDine 0.1 MG TABLET PO (08:09)
[2019-11-16] MEDS: MULTIVITAMIN 1 TABLET 1 TAB PO (08:09)
[2019-11-16] MEDS: THIAMINE 100 MG TABLET PO (08:09)
[2019-11-16] MEDS: FOLIC ACID 1 MG TABLET PO (08:10)
[2019-11-16] MEDS: PANTOPRAZOLE 40 MG VIAL IV ×2 (08:10→21:38)
[2019-11-16] MEDS: KCL 40 MEQ IN NS 1,000 ML 100 MEQ IV ×2 (08:22→19:06)
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
[2019-11-16] MEDS: MAGNESIUM SULFATE 2 GM/50 ML PIGGYBACK IV (08:46)
[2019-11-16] MEDS: NICOTINE 14 PATCH 14 MG TOP (08:46)
--- NOTE | 2019-11-16 16:46 | CM.SWNOTE ---
COLDFUSION note: Reviewed chart. Patient is a 24yr old male admitted to [facility] for ETOH detox. Patient medically unstable in ED therefore, admitted to floor on 11/15/19. PCP listed is Cher Sanchez. Primary payor is listed as 1)Cegal Nolan. Met with patient explained COLDFUSION role. Patient's Dad/Leonard at bedside. Per patient Father is deaf. Patient confirms that he would like to go to detox to complete his current alcohol w/d. Patient reports that he does not believe he has medical insurance. Patient adds that he let it go because he could not afford it. Patient agreeable to detox and denies any current suicidal/homicidal ideation. Patient aware that he will most likely be medically cleared for detox on 11-17-19. Patient will be instructed to call [facility] for detox bed. Patient reports that his Dad just got here and that he will be visiting with him for awhile. COLDFUSION in agreement to complete assessment in AM on 11-17-19. P: Anticipate medical clearance tomorrow. Patient will be instructed to call [facility] for detox bed at [phone]. Following closely. BASSAM Cosme
[2019-11-16 17:50] LABS: Alanine Aminotransferase 125 IU/L (<50); Albumin 3.8 g/dL (3.5-5.0); Albumin Globulin Ratio 1.2 (1.0-2.8); Alkaline Phosphatase 140 U/L (38-126); Aspartate Aminotransferase 381 IU/L (17-59); Calcium 8.4 mg/dL (8.4-10.2); Carbon Dioxide 31 mmol/L (22-32); Chloride 94 mmol/L (98-107); Estimated Glomerular Filt Rate > 60.0 mL/min (>60); Globulin 3.1 g/dL (1.7-4.1); Glucose 95 mg/dL (70-100); HEMOLYSIS < 15 (0-50); Potassium 3.2 mmol/L (3.4-5.1); Sodium 131 mmol/L (137-145); Total Protein 6.9 g/dL (6.3-8.2)
[2019-11-16 17:51] LABS: Blood Urea Nitrogen < 2 mg/dL (9-20)
[2019-11-16] MEDS: POTASSIUM CHLORIDE 20 MEQ TAB 40 MEQ PO (18:12)
[2019-11-17] VITALS: O2SAT 96
[2019-11-17 02:57] VITALS: BP 125/72; PULSE 95; RESP 18; TEMP 37.6; O2SAT 96
[2019-11-17 03:08] LABS: HBsAg Screen Negative (Negative); Hepatitis A Antibody IgM Negative (Negative); Hepatitis B Core Antibody IgM Negative (Negative); Hepatitis C Antibody <0.1 s/co ratio (0.0-0.9)
[2019-11-17] MEDS: KCL 40 MEQ IN NS 1,000 ML 100 MEQ IV (05:09)
[2019-11-17 05:34] LABS: Add Manual Diff / Slide Review NO; Basophils Absolute Auto 100 /uL (0-100); Basophils Percent Auto 0.4 % (0-2); Eosinophils Absolute Auto 600 /uL (0-450); Eosinophils Percent Auto 4.4 % (2-4); Hematocrit 34.9 % (41-53); Hemoglobin 12.4 g/dL (13.5-17.5); Lymphocytes Absolute Auto 1200 /uL (1100-4500); Lymphocytes Percent Auto 8.7 % (25-40); Mean Corpuscular HGB Conc 35.6 % (30-36); Mean Corpuscular Volume 95.5 fL (80-100); Monocytes Absolute Auto 800 /uL (0-900); Monocytes Percent Auto 5.3 % (3-14); Neutrophils Absolute Auto 11400 /uL (1500-7000); Neutrophils Percent Auto 81.2 % (50-75); Platelet Count 159 X10^3/uL (150-400); Red Blood Cell Count 3.66 X10^6/uL (4.5-5.9); Red Cell Distribution Width 17.4 % (11.6-14.8); White Blood Cell Count 14.1 X10^3/uL (4.5-11.0)
[2019-11-17 05:42] LABS: Calcium 8.7 mg/dL (8.4-10.2); Carbon Dioxide 28 mmol/L (22-32); Chloride 96 mmol/L (98-107); Estimated Glomerular Filt Rate > 60.0 mL/min (>60); Glucose 107 mg/dL (70-100); HEMOLYSIS < 15 (0-50); Magnesium 1.7 mg/dL (1.6-2.3); Potassium 3.6 mmol/L (3.4-5.1); Sodium 132 mmol/L (137-145)
[2019-11-17 05:45] LABS: BUN Creatinine Ratio 4.2 (6-22); Blood Urea Nitrogen < 2 mg/dL (9-20)
[2019-11-17] MEDS: chlordiazePOXIDE 25 MG CAPSULE 50 MG PO (06:13)
[2019-11-17 07:00] VITALS: O2SAT 99
[2019-11-17 08:00] VITALS: BP 138/97; PULSE 112; RESP 17; TEMP 37.4; O2SAT 99
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
[2019-11-17] MEDS: NICOTINE 14 PATCH 14 MG TOP (08:29)
[2019-11-17] MEDS: FOLIC ACID 1 MG TABLET PO (08:31)
[2019-11-17] MEDS: MULTIVITAMIN 1 TABLET 1 TAB PO (08:31)
[2019-11-17] MEDS: THIAMINE 100 MG TABLET PO (08:31)
--- NOTE | 2019-11-17 11:48 | PC.NURSE ---
am shift Pt cooperative and alert x4 this am. Tremulous. CIMUKESH 6. recieving scheduled Librium. Coordinating d/c planning with [facility]. 1130, call into Crisis center for d/c. Accepting. Pt is going to go with father for ride. Rx for Ativan taper given to father. Both IVs removed. Tele dc'd.
--- NOTE | 2019-11-17 12:13 | CM.DANOTE ---
DCP/Assessment continued: Reviewed chart. Spoke with provider/Dr. Dwyer this AM re: d/c planning. Provider confirms that patient is medically stable to discharge to alcohol detox today. Placed call to [facility] spoke with Stephanie, she reports that they do have male bed. Met with patient this AM, he is aware and agreeable to d/c plan. Patient instructed to call [facility] and complete intake. Intake completed and patient accepted at [facility]. Father at bedside and will provide transport. Clinical information faxed to [facility] per request. Prescription obtained for Ativan 2mg (9) total tablets. Father and patient aware that facility will need hard copy of prescription upon arrival. P: [facility] today for ETOH detox. BASSAM Cosme Discharge Planning/Care Management CM Discharge Assessment Start: 11/17/19 12:05 Freq: Status: Active Protocol: Document 11/17/19 12:06 KJS (Rec: 11/17/19 12:12 KJS [id number]) Discharge Planning Assessment Assigned Route Agent BASSAM Cosme Contact Information Leonard Barragan (Father) Advance Directives? No Advance Directives on File No History Provided By Patient,Medical Record Prior Living Arrangements House Household Members family Independent with ADL's Yes Is patient alert and oriented? Yes Caregiver for Another No Barriers to Discharge No Discharge Plan Drug Rehabilitation Transportation Arrangement Family to provide transport to [facility]. Whiteboard Updated in Patient Room with Yes name and ext. # of Route Agent Review Status In Process Next Review Type Continued Stay Review
== END 2019-11-17 13:25 | disposition home or self-care (01) | DRG 897 ==
LOC: ED 11:59 → AC 12:09
PROVIDERS: Nurse Practitioner Family; Admitting Provider Internal Medicine; Emergency Provider Emergency Medicine; PCP Nurse Practitioner Family; Referring Provider Emergency Medicine; Visit Provider Internal Medicine
DX: F10.230 Alcohol dependence with withdrawal, uncomplicated (principal); E87.1 Hypo-osmolality and hyponatremia; F10.220 Alcohol dependence with intoxication, uncomplicated; K29.20 Alcoholic gastritis without bleeding; K70.10 Alcoholic hepatitis without ascites; Y90.8 Blood alcohol level of 240 mg/100 ml or more; E86.0 Dehydration; E87.6 Hypokalemia; E83.42 Hypomagnesemia; I45.81 Long QT syndrome; F32.9 Major depressive disorder, single episode, unspecified; F12.90 Cannabis use, unspecified, uncomplicated; F17.210 Nicotine dependence, cigarettes, uncomplicated; Z11.59 Encounter for screening for other viral diseases
CPT/HCPCS: 36415; 71045; 80048; 80053; 80074; 80305; 80320; 81001; 81003; 81015; 83036; 83690; 83735; 85025; 85610; 85730; 87635; 93005; 96365; 96366; 96375; 99284; 99285; C9113; J1650; J2060; J2405; J2765; J3475; J3480

== ENCOUNTER → 2019-11-30 16:22 | Outpatient (CLI) | payer OTHER, SELFPAY ==
[2019-11-15 13:32] VITALS: BMI 26.2
--- NOTE | 2019-11-30 16:24 | DI.RAD.S_ITS ---
PROCEDURE: XR LUMBAR SPINE 2-3V INDICATIONS: back pain TECHNIQUE: 3 views of the lumbar spine were acquired. COMPARISON: None. FINDINGS: Bones: 5 [id number] vertebrae are present. There is normal bony alignment. No vertebral body compression fractures. No suspicious bony lesions. Soft tissues: Overlying bowel gas pattern is normal. No suspicious soft tissue calcifications. IMPRESSION: No acute compression fracture or spondylolisthesis in lumbar spine. Dictated by: Jem Murrell M.D. on 11/30/2019 at 16:47 Approved by: Jem Murrell M.D. on 11/30/2019 at 16:48
== END ==
PROVIDERS: PCP Nurse Practitioner Family; Referring Provider Physician Assistant; Visit Provider Physician Assistant
DX: M54.5 Low back pain (principal)
CPT/HCPCS: 72100

== ENCOUNTER → 2019-12-03 15:39 | Outpatient (CLI) | payer OTHER, SELFPAY ==
[2019-11-15 13:32] VITALS: BMI 26.2
[2019-12-03 16:33] LABS: Hematocrit 37.4 % (41-53); Hemoglobin 12.7 g/dL (13.5-17.5); Mean Corpuscular Hemoglobin 33.4 PG (26-34); Mean Corpuscular Volume 98.2 fL (80-100); Platelet Count 616 X10^3/uL (150-400); Red Cell Distribution Width 16.6 % (11.6-14.8); White Blood Cell Count 11.3 X10^3/uL (4.5-11.0)
[2019-12-03 16:49] LABS: Alanine Aminotransferase 120 IU/L (<50); Albumin 4.7 g/dL (3.5-5.0); Albumin Globulin Ratio 1.5 (1.0-2.8); Alkaline Phosphatase 108 U/L (38-126); Aspartate Aminotransferase 87 IU/L (17-59); BUN Creatinine Ratio 23.8 (6-22); Bilirubin Total 0.4 mg/dL (0.2-1.3); Blood Urea Nitrogen 15 mg/dL (9-20); Carbon Dioxide 29 mmol/L (22-32); Chloride 101 mmol/L (98-107); Estimated Glomerular Filt Rate > 60.0 mL/min (>60); Globulin 3.2 g/dL (1.7-4.1); Glucose 84 mg/dL (70-100); HEMOLYSIS < 15 (0-50); Potassium 4.1 mmol/L (3.4-5.1); Sodium 139 mmol/L (137-145); Total Protein 7.9 g/dL (6.3-8.2)
[2019-12-03 17:54] LABS: Folate 8.7 ng/mL (2.76-20.0); Vitamin B12 579 pg/mL (239-931)
== END ==
PROVIDERS: PCP Nurse Practitioner Family; Referring Provider Nurse Practitioner Family; Visit Provider Nurse Practitioner Family
DX: Z00.00 Encounter for general adult medical examination without abnormal findings (principal); E87.1 Hypo-osmolality and hyponatremia; E87.6 Hypokalemia; F10.11 Alcohol abuse, in remission; D64.9 Anemia, unspecified
CPT/HCPCS: 36415; 80053; 82607; 82746; 84425; 85027

== ENCOUNTER → 2019-12-06 12:13 | Outpatient (CLI) | payer OTHER, SELFPAY ==
[2019-11-15 13:32] VITALS: BMI 26.2
[2019-12-09 13:10] LABS: Vitamin B1 153.4 nmol/L (66.5-200.0)
== END ==
PROVIDERS: PCP Nurse Practitioner Family; Referring Provider Nurse Practitioner Family; Visit Provider Nurse Practitioner Family
DX: E87.1 Hypo-osmolality and hyponatremia (principal); E87.6 Hypokalemia
CPT/HCPCS: 36415; 84425

== ENCOUNTER → 2019-12-17 15:28 | Outpatient (CLI) | payer OTHER, SELFPAY ==
[2019-11-15 13:32] VITALS: BMI 26.2
[2019-12-17 17:04] LABS: Add Manual Diff / Slide Review NO; Basophils Absolute Auto 100 /uL (0-100); Basophils Percent Auto 1.3 % (0-2); Eosinophils Absolute Auto 600 /uL (0-450); Eosinophils Percent Auto 8.2 % (2-4); Hematocrit 37.8 % (41-53); Hemoglobin 12.8 g/dL (13.5-17.5); Lymphocytes Absolute Auto 2200 /uL (1100-4500); Lymphocytes Percent Auto 29.1 % (25-40); Mean Corpuscular HGB Conc 33.7 % (30-36); Mean Corpuscular Hemoglobin 32.5 PG (26-34); Mean Corpuscular Volume 96.3 fL (80-100); Monocytes Absolute Auto 1100 /uL (0-900); Monocytes Percent Auto 14.5 % (3-14); Neutrophils Absolute Auto 3600 /uL (1500-7000); Neutrophils Percent Auto 46.9 % (50-75); Platelet Count 353 X10^3/uL (150-400); Red Blood Cell Count 3.93 X10^6/uL (4.5-5.9); Red Cell Distribution Width 15.2 % (11.6-14.8); White Blood Cell Count 7.7 X10^3/uL (4.5-11.0)
[2019-12-17 17:32] LABS: Alanine Aminotransferase 75 IU/L (<50); Albumin 4.3 g/dL (3.5-5.0); Albumin Globulin Ratio 1.6 (1.0-2.8); Alkaline Phosphatase 79 U/L (38-126); Aspartate Aminotransferase 59 IU/L (17-59); Bilirubin Total 0.7 mg/dL (0.2-1.3); Bilirubin Unconjugated 0.5 mg/dL (0.0-1.1); Globulin 2.7 g/dL (1.7-4.1); HEMOLYSIS < 15 (0-50)
[2019-12-17 17:36] LABS: HEMOLYSIS < 15 (0-50); Iron 77 ug/dL (49-181)
[2019-12-17 17:47] LABS: Percent Iron Saturation 21 % (20-50); Total Iron Binding Capacity 361 ug/dL (261-462); Transferrin 283 mg/dL (206-381)
[2019-12-17 18:05] LABS: Ferritin 117 ng/mL (18-464)
== END ==
PROVIDERS: PCP Nurse Practitioner Family; Referring Provider Nurse Practitioner Family; Visit Provider Nurse Practitioner Family
DX: D64.9 Anemia, unspecified (principal); F10.11 Alcohol abuse, in remission
CPT/HCPCS: 36415; 80076; 82728; 83540; 83550; 85025

== ENCOUNTER → 2020-01-18 16:54 | Outpatient (CLI) | payer OTHER, SELFPAY ==
[2019-11-15 13:32] VITALS: BMI 26.2
[2020-01-18 17:39] LABS: Add Manual Diff / Slide Review NO; Basophils Absolute Auto 100 /uL (0-100); Basophils Percent Auto 1.2 % (0-2); Eosinophils Absolute Auto 300 /uL (0-450); Hematocrit 43.4 % (41-53); Hemoglobin 14.8 g/dL (13.5-17.5); Lymphocytes Absolute Auto 2300 /uL (1100-4500); Lymphocytes Percent Auto 34.6 % (25-40); Mean Corpuscular HGB Conc 34.1 % (30-36); Mean Corpuscular Hemoglobin 31.2 PG (26-34); Mean Corpuscular Volume 91.3 fL (80-100); Monocytes Absolute Auto 600 /uL (0-900); Monocytes Percent Auto 9.7 % (3-14); Neutrophils Absolute Auto 3300 /uL (1500-7000); Neutrophils Percent Auto 50.5 % (50-75); Platelet Count 357 X10^3/uL (150-400); Red Blood Cell Count 4.76 X10^6/uL (4.5-5.9); Red Cell Distribution Width 12.8 % (11.6-14.8); White Blood Cell Count 6.6 X10^3/uL (4.5-11.0)
[2020-01-18 17:50] LABS: Alanine Aminotransferase 31 IU/L (<50); Albumin 4.6 g/dL (3.5-5.0); Albumin Globulin Ratio 1.8 (1.0-2.8); Alkaline Phosphatase 85 U/L (38-126); Aspartate Aminotransferase 36 IU/L (17-59); Bilirubin Total 0.6 mg/dL (0.2-1.3); Bilirubin Unconjugated 0.4 mg/dL (0.0-1.1); Globulin 2.6 g/dL (1.7-4.1); HEMOLYSIS < 15 (0-50); Total Protein 7.2 g/dL (6.3-8.2)
== END ==
PROVIDERS: PCP Nurse Practitioner Family; Referring Provider Nurse Practitioner Family; Visit Provider Nurse Practitioner Family
DX: D64.9 Anemia, unspecified (principal); F10.11 Alcohol abuse, in remission; R74.8 Abnormal levels of other serum enzymes
CPT/HCPCS: 36415; 80076; 85025

== ENCOUNTER → 2021-12-28 11:05 | Outpatient (CLI) | payer OTHER, SELFPAY ==
[2019-11-15 13:32] VITALS: BMI 26.2
== END ==
PROVIDERS: PCP Pediatrics; Visit Provider Pediatrics
DX: L73.9 Follicular disorder, unspecified (principal); Z78.9 Other specified health status; Z84.0 Family history of diseases of the skin and subcutaneous tissue
CPT/HCPCS: 87797

== ENCOUNTER → 2021-12-28 11:17 | Outpatient (CLI) | payer OTHER, SELFPAY ==
[2019-11-15 13:32] VITALS: BMI 26.2
[2021-12-28 12:28] LABS: Add Manual Diff / Slide Review NO; Basophils Absolute Auto 100 /uL (0-100); Basophils Percent Auto 0.8 % (0-2); Eosinophils Absolute Auto 300 /uL (0-450); Eosinophils Percent Auto 4.1 % (2-4); Hematocrit 43.6 % (41-53); Hemoglobin 15.5 g/dL (13.5-17.5); Lymphocytes Absolute Auto 2400 /uL (1100-4500); Lymphocytes Percent Auto 36.9 % (25-40); Mean Corpuscular HGB Conc 35.6 % (30-36); Mean Corpuscular Hemoglobin 31.8 PG (26-34); Mean Corpuscular Volume 89.2 fL (80-100); Monocytes Absolute Auto 600 /uL (0-900); Monocytes Percent Auto 8.7 % (3-14); Neutrophils Absolute Auto 3200 /uL (1500-7000); Neutrophils Percent Auto 49.5 % (50-75); Platelet Count 280 X10^3/uL (150-400); Red Blood Cell Count 4.89 X10^6/uL (4.5-5.9); Red Cell Distribution Width 13.3 % (11.6-14.8); White Blood Cell Count 6.4 X10^3/uL (4.5-11.0)
[2021-12-28 13:06] LABS: Alanine Aminotransferase 31 IU/L (<50); Albumin 4.5 g/dL (3.5-5.0); Albumin Globulin Ratio 1.9 (1.0-2.8); Alkaline Phosphatase 75 U/L (38-126); Aspartate Aminotransferase 29 IU/L (17-59); BUN Creatinine Ratio 14.6 (6-22); Blood Urea Nitrogen 12 mg/dL (9-20); Calcium 9.4 mg/dL (8.4-10.2); Carbon Dioxide 31 mmol/L (22-32); Chloride 102 mmol/L (98-107); Estimated Glomerular Filt Rate > 60 mL/min (>60); Globulin 2.4 g/dL (1.7-4.1); Glucose 91 mg/dL (70-100); HEMOLYSIS < 15 (0-50); Potassium 4.4 mmol/L (3.4-5.1); Sodium 140 mmol/L (137-145); Total Protein 6.9 g/dL (6.3-8.2)
[2021-12-28 14:56] LABS: Appearance Urine UA CLEAR; Bilirubin Urine UA NEGATIVE (NEGATIVE); Color Urine UA YELLOW; Glucose Urine UA NEGATIVE (Negative); Ketones Urine UA NEGATIVE (NEGATIVE); Leukocyte Esterase Urine UA NEGATIVE (NEGATIVE); Nitrite Urine UA NEGATIVE (Negative); Occult Blood Urine UA NEGATIVE (Negative); Protein Urine UA NEGATIVE (Negative); Urobilinogen Urine UA 0.2 E.U./dL (0.2); pH Urine UA 6.5 (4.5-8.0)
[2021-12-28 15:19] LABS: Amorphous Sediment Urine 1+; Bacteria Urine None Seen; Culture Indicated Urine Cult Not Indicated; RBC Urine None Seen (0-5/HPF); WBC Urine None Seen (0-5/HPF)
[2021-12-28 18:48] LABS: HIV 1 & 2 Ab/Ag 4th Gen Combo NEGATIVE (NEGATIVE); Hep C Virus Ab w/Reflex Quant NEGATIVE s/c (NEGATIVE)
== END ==
PROVIDERS: PCP Pediatrics; Referring Provider Pediatrics; Visit Provider Pediatrics
DX: Z00.00 Encounter for general adult medical examination without abnormal findings (principal); G47.00 Insomnia, unspecified; L73.9 Follicular disorder, unspecified; Z78.9 Other specified health status; Z84.0 Family history of diseases of the skin and subcutaneous tissue
CPT/HCPCS: 36415; 80053; 81001; 85025; 86803; 87389; 87797

== ENCOUNTER → 2023-10-23 08:35 | Outpatient (CLI) | payer OTHER, SELFPAY ==
[2019-11-15 13:32] VITALS: BMI 26.2
[2023-10-23 10:00] LABS: Add Manual Diff / Slide Review NO; Basophils Absolute Auto 100 /uL (0-100); Eosinophils Absolute Auto 200 /uL (0-450); Eosinophils Percent Auto 2.4 % (2-4); Hematocrit 42.1 % (41-53); Hemoglobin 15.1 g/dL (13.5-17.5); Lymphocytes Absolute Auto 2000 /uL (1100-4500); Lymphocytes Percent Auto 27.4 % (25-40); Mean Corpuscular HGB Conc 35.9 % (30-36); Mean Corpuscular Hemoglobin 36.8 PG (26-34); Mean Corpuscular Volume 102.4 fL (80-100); Monocytes Absolute Auto 800 /uL (0-900); Monocytes Percent Auto 10.4 % (3-14); Neutrophils Absolute Auto 4300 /uL (1500-7000); Neutrophils Percent Auto 58.8 % (50-75); Platelet Count 227 X10^3/uL (150-400); Red Blood Cell Count 4.11 X10^6/uL (4.5-5.9); Red Cell Distribution Width 15.6 % (11.6-14.8); White Blood Cell Count 7.3 X10^3/uL (4.5-11.0)
[2023-10-23 10:29] LABS: Alanine Aminotransferase 58 IU/L (<50); Albumin 5.2 g/dL (3.5-5.0); Albumin Globulin Ratio 2.2 (1.0-2.8); Alkaline Phosphatase 88 U/L (38-126); Aspartate Aminotransferase 115 IU/L (17-59); BUN Creatinine Ratio 9.5 (6-22); Bilirubin Total 1.8 mg/dL (0.2-1.3); Blood Urea Nitrogen 6 mg/dL (9-20); Carbon Dioxide 33 mmol/L (22-32); Chloride 93 mmol/L (98-107); Estimated Glomerular Filt Rate > 60 mL/min (>60); Globulin 2.4 g/dL (1.7-4.1); Glucose 104 mg/dL (70-100); HEMOLYSIS < 15 (0-50); Potassium 3.2 mmol/L (3.4-5.1); Sodium 138 mmol/L (137-145); Total Protein 7.6 g/dL (6.3-8.2)
[2023-10-23 10:56] LABS: TSH w/ Reflex to FT4 3.03 uIU/mL (0.47-4.68)
== END ==
PROVIDERS: PCP Family Medicine; Referring Provider Family Medicine; Visit Provider Family Medicine
DX: F10.10 Alcohol abuse, uncomplicated (principal); F31.9 Bipolar disorder, unspecified; F12.90 Cannabis use, unspecified, uncomplicated; F15.11 Other stimulant abuse, in remission
CPT/HCPCS: 36415; 80053; 84443; 85025

== ENCOUNTER → 2023-12-10 10:24 | Outpatient (CLI) | payer OTHER, SELFPAY ==
[2019-11-15 13:32] VITALS: BMI 26.2
[2023-12-10 12:09] LABS: Alanine Aminotransferase 39 IU/L (<50); Albumin Globulin Ratio 1.8 (1.0-2.8); Alkaline Phosphatase 77 U/L (38-126); Aspartate Aminotransferase 33 IU/L (17-59); BUN Creatinine Ratio 17.5 (6-22); Bilirubin Total 0.5 mg/dL (0.2-1.3); Blood Urea Nitrogen 11 mg/dL (9-20); Calcium 9.3 mg/dL (8.4-10.2); Carbon Dioxide 26 mmol/L (22-32); Chloride 106 mmol/L (98-107); Estimated Glomerular Filt Rate > 60 mL/min (>60); Globulin 2.2 g/dL (1.7-4.1); Glucose 112 mg/dL (70-100); HEMOLYSIS < 15 (0-50); Potassium 4.3 mmol/L (3.4-5.1); Sodium 139 mmol/L (137-145); Total Protein 6.2 g/dL (6.3-8.2)
== END ==
PROVIDERS: PCP Family Medicine; Referring Provider Family Medicine; Visit Provider Family Medicine
DX: R79.89 Other specified abnormal findings of blood chemistry (principal)
CPT/HCPCS: 36415; 80053

== ENCOUNTER → 2024-02-10 11:11 | Outpatient (CLI) | payer OTHER, SELFPAY ==
[2019-11-15 13:32] VITALS: BMI 26.2
== END ==
PROVIDERS: PCP Family Medicine; Referring Provider Family Medicine; Visit Provider Family Medicine
DX: J45.41 Moderate persistent asthma with (acute) exacerbation (principal); F17.210 Nicotine dependence, cigarettes, uncomplicated
CPT/HCPCS: 94060

== ENCOUNTER → 2024-12-21 11:23 | Outpatient (CLI) | payer OTHER, SELFPAY ==
[2019-11-15 13:32] VITALS: BMI 26.2
[2024-12-21 11:59] LABS: Hemoglobin A1C% w Est Avg Glu 5.2 % (4.0-6.0)
[2024-12-21 12:11] LABS: Hematocrit 44.6 % (41-53); Hemoglobin 16.1 g/dL (13.5-17.5); Mean Corpuscular HGB Conc 36.2 % (30-36); Mean Corpuscular Hemoglobin 30.5 PG (26-34); Mean Corpuscular Volume 84.3 fL (80-100); Platelet Count 309 X10^3/uL (150-400)
[2024-12-21 13:26] LABS: Alanine Aminotransferase 35 IU/L (<50); Albumin 5.0 g/dL (3.5-5.0); Albumin Globulin Ratio 1.8 (1.0-2.8); Alkaline Phosphatase 83 U/L (38-126); Blood Urea Nitrogen 18 mg/dL (9-20); Calcium 10.0 mg/dL (8.4-10.2); Carbon Dioxide 28 mmol/L (22-32); Chloride 102 mmol/L (98-107); Cholesterol 228 mg/dL (140-199); Estimated Glomerular Filt Rate > 60 mL/min (>60); Globulin 2.8 g/dL (1.7-4.1); Glucose 91 mg/dL (70-99); HDL Cholesterol 36 mg/dL (40-60); HEMOLYSIS < 15 (0-50); Potassium 4.7 mmol/L (3.4-5.1); Sodium 139 mmol/L (137-145); Total Protein 7.8 g/dL (6.3-8.2); Triglycerides 92 mg/dL (35-150)
== END ==
PROVIDERS: PCP Family Medicine; Referring Provider Family Medicine; Visit Provider Family Medicine
DX: J41.0 Simple chronic bronchitis (principal); F31.9 Bipolar disorder, unspecified
CPT/HCPCS: 36415; 80053; 80061; 83036; 85027